=== PATIENT | female | born 1970 ===

== ENCOUNTER 2017-01-25 20:50 | Inpatient (IN) ==
[2017-01-25] MEDS ORDERED: KETOROLAC 30 MG/1 ML VIAL IV STA (21:57)
[2017-01-25] MEDS ORDERED: KETOROLAC 30 MG/1 ML VIAL ONE (22:09)
[2017-01-25 22:32] LABS: Basophils % 0.2 % (0.0-0.8); Eosinophils # 0.2 10*3/uL (0.0-0.87); Eosinophils % 0.8 % (0.00-10.9); Hematocrit 27.5 VOL% (35.7-47.0); Hemoglobin 9.3 GM/DL (12.0-16.0); Immature Granulocytes % 0.8 %; Immature Granulocytes Absolute 0.17 #; Lymphocytes # 2.3 10*3/uL (1.4-4.0); Lymphocytes % 10.8 % (21.3-54.2); Mean Corpuscular HGB Conc 33.8 GM/DL (32-36); Mean Corpuscular Hemoglobin 28 PG (27-34); Mean Corpuscular Volume 84.1 FL (87-102); Mean Platelet Volume 9.1 FL (9.6-12.0); Monocytes # 1.1 10*3/uL (0.11-0.8); Neutrophils # 17.5 10*3/uL (1.4-7.4); Neutrophils % 82.4 % (38.7-73.9); Platelet Count 408 T/CUMM (130-400); Red Blood Count 3.27 MC/CUMM (3.8-5.5); Red Cell Distribution Width 13.2 % (9.3-17.3); White Blood Count 21.2 T/CUMM (4-12)
[2017-01-25] MEDS ORDERED: VANCOMYCIN INJ 1,000 MG in SODIUM CHLORIDE 0.9% 250 ML IV STA (22:47)
[2017-01-25] MEDS ORDERED: CEFEPIME 2,000 MG in SODIUM CHLORIDE 0.9% 100 ML IV STA (22:47)
[2017-01-25] MEDS ORDERED: SODIUM CHLORIDE 0.9% 2,000 ML IV STA (22:48)
[2017-01-25 22:49] LABS: Albumin 1.9 G/DL (3.4-5.0); Bilirubin,Total 0.4 MG/DL (0.2-1.0); Potassium 2.8 MMOL/L (3.5-5.1); Total Protein 7.2 G/DL (6.4-8.3)
--- NOTE | 2017-01-25 23:04 | Emergency Department Note ---
Arrival - Arrival Chief Complaint: Abscess Stated Complaint: pain on left cheek ED Nursing Triage Note: Patient to triage coming from [facility] ED for further evaluation and treatment of facial abscess and cellulitis to left cheek. Patient states she picked at the area a couple of days ago and then today, she noticed fever, swelling, and pain to left cheek. Patient had 103 temp prior to leaving [facility] ED and was given tylenol. Patient had elevated WBC at [facility] ED. Mode of Arrival: Wheelchair Time Seen by Provider: 01/25/17 21:53 - History of Present Illness HPI Narrative: This is a 46-year-old female of [facility] descent who presents with 2-3 days of pain and worsening swelling of the left facial cheek. Recent says that she had a similar staph abscess involving her back some years ago for which she had to be admitted to the hospital for intravenous antibiotics and surgery. Patient is complaining of fever and chills as well as severe pain involving the left facial cheek. Laboratory tests taken at the [facility] showed acute renal failure. Date of Last Menstrual Period: "last month" Allergies/Adverse Reactions: Allergies Allergy/AdvReac Type Severity Reaction Status Date / Time No Known Allergies Allergy Verified 01/25/17 21:31 Home Medications: Home Medications Medication Instructions Recorded Confirmed Type Aspirin [Ecotrin] 81 mg PO QOTHER DAY 09/09/15 12/17/15 History Fluticasone 50 Mcg Nasal [place] 2 spray BOTH NARES DAILY 09/09/15 12/17/15 History [Flonase Nasal [place]] Ibuprofen 400 mg PO Q6H PRN 09/09/15 12/17/15 History Insulin Aspart [NovoLOG FlexPen] 15 unit SUBCUT AC BREAKFAST 09/09/15 12/17/15 History Insulin Detemir [Levemir FlexPen] 45 unit SUBCUT BEDTIME 09/09/15 12/17/15 History Loratadine 10 mg PO DAILY 09/09/15 12/17/15 History Simvastatin 10 mg PO BEDTIME 09/09/15 12/17/15 History Acetaminophen Tab [Tylenol Tab] 650 mg PO Q6H PRN #0 tablet 09/16/15 12/17/15 Rx HYDROcodone/ACETAMIN 7.5-325 1 tablet PO Q6H PRN #30 tablet 11/26/15 12/17/15 Rx [[place] 7.5-325] Collagenase Oint [Santyl Oint] 1 applic TOP DAILY ointment 12/22/15 Rx Dextrose 50% [D50] 25 gm IV PRN PRN #0 vial 12/22/15 Rx Enoxaparin [Lovenox] 40 mg SUBCUT Q24H syringe 12/22/15 Rx Glucagon 1 mg IM PRN PRN #0 vial 12/22/15 Rx HYDROcodone/ACETAMIN 7.5-325 1 tablet PO Q4H PRN #0 tablet 12/22/15 Rx [[place] 7.5-325] HYDROmorphone INJ [Dilaudid Inj] 1 mg IV Q2H PRN #0 vial 12/22/15 Rx Insulin Lispro [HumaLOG] 15 unit SUBCUT TID W/MEALS ml 12/22/15 Rx Insulin Regular [HumuLIN R] See Protocol SUBCUT ACHS injection 12/22/15 Rx NIFEdipine XL TAB [Procardia Xl] 60 mg PO DAILY tablet 12/22/15 Rx Pantoprazole Tab [Protonix Tab] 40 mg PO DAILY tablet 12/22/15 Rx Sodium Hypochlorite 0.25% Irr 1 applic TOP DAILY irrigation 12/22/15 Rx [Dakins 1/2 Strength 0.25% Soln] Vancomycin Inj 1,500 mg IV Q12H vial 12/22/15 Rx metroNIDAZOLE INJ [Flagyl Inj] 500 mg IV Q8H premix 12/22/15 Rx Review of System - Review of System Constitutional: Present: chills, fever Eyes: Absent: redness, vision change, other Head/Ears/Nose/Throat: Present: other (Left facial swelling and redness). Absent: epistaxis, nasal drainage Respiratory: Absent: respiratory distress, wheezing Cardiovascular: Absent: dyspnea on exertion, orthopnea, edema Gastrointestinal: Absent: constipation, melena Genitourinary female: Absent: dysuria, discharge, dyspareunia Musculoskeletal: Absent: joint swelling, lower back pain, leg pain, neck pain Skin: Absent: change in color, change in hair/nails Neurological: Absent: numbness, paresthesias, confusion Psychiatric: Absent: anxiety, depression Endocrine: Absent: heat intolerance, polydipsia, polyuria Hematological/Lymphatic: Absent: easy bruising, lymphadenopathy Allergic/Immunologic: Absent: urticaria, itchy eyes Medical,Surgical,& Family Hx - Medical History Cardio: History of: Hypertension HEENT: History of: Eye Problem (wears glasses) Endocrine: History of: Diabetes Mellitus (IDDM), Dyslipidemia Respiratory: History of: Respiratory Problems (ALLERGIES) Musculoskeletal: History of: Musculoskeletal Problems (ARTHRITIS) - Surgical History Reproductive Surgeries: Patient denies;: Genitourinary Surgery Orthopedic Surgeries: Surgical HX of;: Orthopedic Surgery (toe and back) - Family History Family History: Reports;: Family Diabetes - Social History Smoking Status: Never smoker Frequency of Alcohol Use: None Type of Drug Use: None Exam Vital Signs: Vital Signs Temperature 99.6 F 01/25/17 21:21 Pulse Rate 82 01/25/17 21:21 Respiratory Rate 20 01/25/17 21:21 Blood Pressure 166/78 01/25/17 21:21 O2 Sat by Pulse Oximetry 99 01/25/17 21:21 - Head Head exam: Present: atraumatic, normocephalic - Eye Eye exam: Present: PERRL, EOMI - ENT ENT exam: Present: other (Redness warmth and swelling involving the left facial cheek) - Neck Neck exam: Present: normal inspection, full ROM - Chest Chest inspection: Present: normal inspection, symmetric chest wall rise - Respiratory Respiratory exam: Present: normal lung sounds bilaterally - Abdominal Exam Abdominal exam: Present: soft, normal bowel sounds - Extremities Exam Extremities exam: Present: normal inspection, full ROM - Back Exam Back exam: Present: normal inspection, full ROM - Neurological Exam Neurological exam: Present: alert, oriented X3, CN II-XII intact, normal gait - Psychiatric Psychiatric exam: Present: normal affect, normal mood - Skin Skin exam: Present: warm, dry Course Course Narrative: The patient's creatinine was found to be above 4.5. This is a change from her laboratory tests from 1 year ago. In addition she has a history of fever and chills as well as a 21,000 white count so it appears that the patient has a septic picture possibly related to the cellulitis or abscess involving the left facial cheek. The patient therefore will be admitted to the hospital for intravenous antibiotics and surgical consultation and evaluation by nephrology. The case was discussed with the hospitalist who agreed to admit the patient. Results - Labs CBC & BMP: 01/25/17 22:16 01/25/17 22:16 Disposition Clinical Impression: Acute renal failure, Sepsis affecting skin
[2017-01-25 23:11] LABS: Band Neutrophils 3 % (0-10); Lymphocytes 11 % (20-55); Segmented Neutrophils 82 % (50-85)
[2017-01-25 23:12] LABS: Platelet Estimate Normal; Total Cells Counted 100
[2017-01-25] MEDS ORDERED: VANCOMYCIN 1,000 MG VIAL ONE (23:12)
--- NOTE | 2017-01-26 01:08 | Hospitalist History & Physical ---
Assessment and Plan - Time spent with patient Time spent with patient: Less than 30 minutes (1) Facial abscess Status: Acute Assessment and plan: Blood cultures pending Zosyn and Vancomycin for IV coverage Temp 99.6. WBC 22 CT maxiofacial showed left cheek soft tissue swelling with subq edema Will consult ENT Pain meds PRN Continue hydration Current Visit: Yes (2) Hypertension Status: Acute Current Visit: Yes (3) Hypokalemia Status: Acute Assessment and plan: will replace orally and then recheck Current Visit: Yes (4) CKD (chronic kidney disease) Status: Chronic Assessment and plan: Awaiting appointment with Dr. Knott in 2 weeks Current Visit: No (5) Diabetes Status: Acute Assessment and plan: Will place on SSI with accuchecks until home medications can be confirmed Current Visit: No (6) Diabetic foot ulcers Status: Chronic Assessment and plan: Will consult wound for recommendations Current Visit: Yes Qualifiers: Diabetes mellitus type: due to underlying condition Laterality: bilateral Qualified Code(s): E08.621 - Diabetes mellitus due to underlying condition with foot ulcer History of Present Illness Chief complaint: boil on face History of present illness: Called to the ER for Ms. Guerra who is a 46 year old female that was a transfer from [facility] for a facial abscess. Patient stated that she saw the abscess began to form a couple days ago and then began to ran fever of 100.3 yesterday and today. Patient went to clinic [facility] where she received Rocephin 1 g IM. They transferred her to [facility] ER and then was transferred here. CT maxillofacial showed left cheek soft tissue swelling and subcutaneous edema. Patient has a history of an abscess being surgically I&D to her back as well as a non-healing diabetic foot ulcer that has been followed by Dr. Hinson and Dr. Garcia. Today she has received Maxipime and vancomycin for antibiotics. Blood cultures were obtained. Her temperature was 99.6 and her WBC count was 19.8. Past blood cultures are greater than a year old but grew out MRSA. Her additional history includes diabetes, dyslipidemia, hypertension, any new diagnosis of chronic kidney disease for which she has an appointment with Dr. Knott 2 weeks from today. She will be admitted under inpatient, vancomycin IV for antibiotics, as needed pain meds, ENT consult, and management of her blood glucose. Home medications will be reviewed and reconciled once confirmed. Patient is a full code. Home Medications Medication Instructions Recorded Confirmed Type Aspirin [Ecotrin] 81 mg PO QOTHER DAY 09/09/15 12/17/15 History Fluticasone 50 Mcg Nasal [place] 2 spray BOTH NARES DAILY 09/09/15 12/17/15 History [Flonase Nasal [place]] Ibuprofen 400 mg PO Q6H PRN 09/09/15 12/17/15 History Insulin Aspart [NovoLOG FlexPen] 15 unit SUBCUT AC BREAKFAST 09/09/15 12/17/15 History Insulin Detemir [Levemir FlexPen] 45 unit SUBCUT BEDTIME 09/09/15 12/17/15 History Loratadine 10 mg PO DAILY 09/09/15 12/17/15 History Simvastatin 10 mg PO BEDTIME 09/09/15 12/17/15 History Acetaminophen Tab [Tylenol Tab] 650 mg PO Q6H PRN #0 tablet 09/16/15 12/17/15 Rx HYDROcodone/ACETAMIN 7.5-325 1 tablet PO Q6H PRN #30 tablet 11/26/15 12/17/15 Rx [[place] 7.5-325] Collagenase Oint [Santyl Oint] 1 applic TOP DAILY ointment 12/22/15 Rx Dextrose 50% [D50] 25 gm IV PRN PRN #0 vial 12/22/15 Rx Enoxaparin [Lovenox] 40 mg SUBCUT Q24H syringe 12/22/15 Rx Glucagon 1 mg IM PRN PRN #0 vial 12/22/15 Rx HYDROcodone/ACETAMIN 7.5-325 1 tablet PO Q4H PRN #0 tablet 12/22/15 Rx [[place] 7.5-325] HYDROmorphone INJ [Dilaudid Inj] 1 mg IV Q2H PRN #0 vial 12/22/15 Rx Insulin Lispro [HumaLOG] 15 unit SUBCUT TID W/MEALS ml 12/22/15 Rx Insulin Regular [HumuLIN R] See Protocol SUBCUT ACHS injection 12/22/15 Rx NIFEdipine XL TAB [Procardia Xl] 60 mg PO DAILY tablet 12/22/15 Rx Pantoprazole Tab [Protonix Tab] 40 mg PO DAILY tablet 12/22/15 Rx Sodium Hypochlorite 0.25% Irr 1 applic TOP DAILY irrigation 12/22/15 Rx [[place]ak[place] 1/2 Strength 0.25% Soln] Vancomycin Inj 1,500 mg IV Q12H vial 12/22/15 Rx metroNIDAZOLE INJ [Flagyl Inj] 500 mg IV Q8H premix 12/22/15 Rx Allergies Allergy/AdvReac Type Severity Reaction Status Date / Time No Known Allergies Allergy Verified 01/25/17 21:31 Medical,Surgical,& Family Hx - Medical History Cardio: History of: Hypertension No history of: CHF, CAD, [place] Psychological: No history of: Anxiety Disorders Neurology: No history of: Cerebrovascular Accident, Migraine, TIA HEENT: History of: Eye Problem (wears glasses) Endocrine: History of: Diabetes Mellitus (IDDM), Dyslipidemia No history of: Thyroid Disorder Rheumatology: No history of;: Rheumatological Problems Respiratory: History of: Respiratory Problems (ALLERGIES) No history of: Asthma, COPD, Obstructive Sleep Apnea Renal: History of: Renal Failure Genitourinary: No history of: Problems Gastrointestinal: No history of: Liver Problems, GI Problems Musculoskeletal: History of: Musculoskeletal Problems (ARTHRITIS) Hematology: No history of: Blood Disorders Other: History of: MRSA - Surgical History Reproductive Surgeries: Patient denies;: Genitourinary Surgery Orthopedic Surgeries: Surgical HX of;: Orthopedic Surgery (toe and back) - Family History Family History: Reports;: Family Cancer (Motherbreast cancer; dadprostate cancer), Family Heart Disease (BrotherMI), Family Hematology (Sisteranemia\) - Social History Smoking Status: Never smoker Frequency of Alcohol Use: None Type of Drug Use: None Marital Status: Single Lives With:: Children Functional capacity: independent ambulation - Constitutional Constitutional: Present: chills, fever(s). Absent: fatigue, headache(s), increased appetite, weakness - EENT Eyes: Absent: blurry vision, loss of vision Ears: Absent: ear discharge, ear pain, tinnitus Nose, mouth and throat: Absent: nasal congestion, neck pain, sore throat, throat swelling, tongue swelling - Cardiovascular Cardiovascular: Absent: chest pain at rest, chest pain with activity, dyspnea, edema, orthopnea - Respiratory Respiratory: Absent: cough, dyspnea, hemoptysis - Gastrointestinal Gastrointestinal: Absent: abdominal pain, diarrhea, dyspepsia, nausea, vomiting - Genitourinary Genitourinary: Absent: abnormal vaginal bleeding - Musculoskeletal Musculoskeletal: Absent: arthralgias - Neurological Neurological: Absent: abnormal gait, disequilibrium, frequent falls - Psychiatric Psychiatric: Absent: anxiety - Endocrine Endocrine: Absent: cold intolerance, heat intolerance - Hematologic/Lymphatic Hematologic/Lymphatic: Absent: easy bleeding Exam - Constitutional Vitals: Period Temp Pulse Resp BP Sys/Jarrell Pulse Ox Last 24 Hr 99.6 F-99.6 F 82-82 20-20 166-166/78-78 99 General appearance: no acute distress, morbidly obese - Head Head exam: Present: normocephalic, other (Abscess to left cheek with erythema and edema throughout left cheek and periorbital) - Eye Eye exam: Present: EOMI, periorbital swelling. Absent: nystagmus Pupils: Present: LUIS MANUEL, normal accommodation - ENT ENT exam: Present: normal exam - Neck Neck exam: Present: normal inspection - Respiratory Respiratory exam: Present: clear to auscultation bilaterally. Absent: accessory muscle use (Respirations even and unlabored. Symmetrical rise and fall of chest.) - Cardiovascular Cardiovascular exam: Present: regular rate and rhythm. Absent: diastolic murmur , systolic murmur - GI/Abdominal GI/Abdominal exam: Present: normal bowel sounds, soft. Absent: firm, tenderness - Extremities Exam Extremities exam: Present: normal inspection, normal capillary refill, full ROM - Back Exam Back exam: Present: normal inspection - Neurological Exam Neurological exam: Present: alert, oriented X3 (Able to answer questions appropriately. Makes good eye contact.) - Psychiatric Psychiatric exam: Present: normal affect, normal mood - Skin Skin exam: Present: normal color, warm, dry, intact Results - Labs CBC & BMP: 01/25/17 22:16 01/25/17 22:16 Lab Results: I have reviewed the past 24 hour labs
[2017-01-26] MEDS ORDERED: PIPERACILLIN/TAZOBACTAM 3,375 MG in SODIUM CHLORIDE 0.9% 100 ML IV SCH (01:30)
[2017-01-26] MEDS ORDERED: GLUCAGON 1 MG VIAL IM PRN (01:53)
[2017-01-26] MEDS ORDERED: POTASSIUM CHLORIDE 20 MEQ TABLET PO ONE ×2 (01:53→09:00)
[2017-01-26] MEDS ORDERED: DEXTROSE 50% 25 GM/50 ML SYRINGE IV PRN (01:53)
[2017-01-26] MEDS ORDERED: ACETAMINOPHEN 325 MG TABLET PO PRN (01:53)
[2017-01-26] MEDS ORDERED: ONDANSETRON 4 MG/2 ML VIAL IV PRN (01:53)
[2017-01-26] MEDS ORDERED: DOCUSATE SODIUM 100 MG CAPSULE PO PRN (01:53)
[2017-01-26] MEDS: SODIUM CHLORIDE 0.9% 1,000 ML IV SCH ×2 (03:05→12:52)
[2017-01-26] MEDS: PIPERACILLIN/TAZOBACTAM 3,375 MG in SODIUM CHLORIDE 0.9% 100 ML IV SCH ×2 (04:53→14:55)
--- NOTE | 2017-01-26 07:03 | CT Report ---
Exam: CT facial bones wo con Date: 01/25/2017 Reason: Left cheek pain Comparison: None Technique: Axial images of the facial bones were obtained without the use of contrast. Sagittal and coronal reformatted images were also acquired. Total DLP was 647.40 mGy*cm. [facility]. Findings: Soft tissue swelling in the left cheek location. No significant fluid collection is identified. Adjacent small calcifications. 17 mm retention cyst/polyp in the floor of the left maxillary sinus. The globes are intact and the visualized temporal bones have an unremarkable appearance. No fracture is identified. Impression: Left cheek soft tissue swelling with no significant drainable fluid collection. . Small superficial calcifications are noted in this area. These findings can be seen with cellulitis, etc. 17 mm retention cyst/polyp in the left maxillary sinus. This CT exam was performed using one or more of the following dose reduction techniques: Automatic exposure control, adjustment of the MA and/or KV according to patient size, or use of iterative reconstruction technique. PROCEDURE INTERPRETED AT [facility] DEPARTMENT OF RADIOLOGY Final Report Signed by: Dr. Christine Mittal
[2017-01-26] MEDS: INSULIN LISPRO 100 UNIT/ML SUBCUT SCH ×4 (07:23→17:55)
[2017-01-26] MEDS: PANTOPRAZOLE 40 MG TABLET PO SCH (09:11)
[2017-01-26] MEDS: ENOXAPARIN 30 MG/0.3 ML SYRINGE SUBCUT SCH (09:11)
[2017-01-26 09:24] LABS: Basophils % 0.1 % (0.0-0.8); Eosinophils # 0.4 10*3/uL (0.0-0.87); Eosinophils % 2.2 % (0.00-10.9); Hematocrit 23.7 VOL% (35.7-47.0); Immature Granulocytes % 0.6 %; Immature Granulocytes Absolute 0.11 #; Lymphocytes # 1.6 10*3/uL (1.4-4.0); Lymphocytes % 9.2 % (21.3-54.2); Mean Corpuscular HGB Conc 33.8 GM/DL (32-36); Mean Corpuscular Hemoglobin 29 PG (27-34); Mean Corpuscular Volume 85.9 FL (87-102); Mean Platelet Volume 8.9 FL (9.6-12.0); Monocytes # 0.9 10*3/uL (0.11-0.8); Monocytes % 5.1 % (1.7-12.7); Neutrophils # 14.1 10*3/uL (1.4-7.4); Neutrophils % 82.8 % (38.7-73.9); Platelet Count 338 T/CUMM (130-400); Red Blood Count 2.76 MC/CUMM (3.8-5.5); Red Cell Distribution Width 13.3 % (9.3-17.3)
--- NOTE | 2017-01-26 09:32 | Consultation ---
Assessment and Plan - Time spent with patient Time spent with patient: Less than 30 minutes (1) Facial abscess Status: Acute Assessment and plan: Her CT scan of the face did not show abscess formation. We will continue her current antibiotic therapy Current Visit: Yes (2) Facial cellulitis Status: Acute Assessment and plan: She did not have evidence of abscess on CT scan of the face or exam. It does not seem that she needs an I&D at this time. She is currently on Zosyn. Her white cell count trended down slightly. We will continue her current antibiotic therapy and follow-up closely. Current Visit: Yes (3) Diabetes Status: Acute Assessment and plan: Good diabetic control. Current Visit: No History of Present Illness - Data of Consult Patient: new to practice Consult date: 01/26/17 - Consult Narrative Reason for consult: Facial abscess History of present illness: Ms. Guerra is a 46 year old female Who was transferred from [facility] due to a possible facial abscess. She had a CT scan of the face that showed some edema, but no abscess formation. She is currently on Zosyn. She does admit to tenderness and pain with movement of her mouth. She is diabetic and has chronic diabetic with ulcers. CC: Laura Michelle MD - Home Medications and Allergies Home Medications: Home Medications Medication Instructions Recorded Confirmed Type Aspirin [Ecotrin] 81 mg PO QOTHER DAY 09/09/15 01/26/17 History Fluticasone 50 Mcg Nasal [place] 2 spray BOTH NARES DAILY 09/09/15 01/26/17 History [Flonase Nasal [place]] Ibuprofen 400 mg PO Q6H PRN 09/09/15 01/26/17 History Insulin Aspart [NovoLOG FlexPen] 10 unit SUBCUT AC BREAKFAST 09/09/15 01/26/17 History Insulin Detemir [Levemir FlexPen] 45 unit SUBCUT BEDTIME 09/09/15 01/26/17 History Loratadine 10 mg PO DAILY 09/09/15 01/26/17 History Simvastatin 10 mg PO BEDTIME 09/09/15 01/26/17 History Acetaminophen Tab [Tylenol Tab] 650 mg PO Q6H PRN #0 tablet 09/16/15 01/26/17 Rx HYDROcodone/ACETAMIN 7.5-325 1 tablet PO Q6H PRN #30 tablet 11/26/15 01/26/17 Rx [[place] 7.5-325] Collagenase Oint [Santyl Oint] 1 applic TOP DAILY ointment 12/22/15 01/26/17 Rx Dextrose 50% [D50] 25 gm IV PRN PRN #0 vial 12/22/15 01/26/17 Rx Enoxaparin [Lovenox] 40 mg SUBCUT Q24H syringe 12/22/15 01/26/17 Rx Glucagon 1 mg IM PRN PRN #0 vial 12/22/15 01/26/17 Rx HYDROcodone/ACETAMIN 7.5-325 1 tablet PO Q4H PRN #0 tablet 12/22/15 01/26/17 Rx [[place] 7.5-325] HYDROmorphone INJ [Dilaudid Inj] 1 mg IV Q2H PRN #0 vial 12/22/15 01/26/17 Rx Insulin Lispro [HumaLOG] 15 unit SUBCUT TID W/MEALS ml 12/22/15 01/26/17 Rx Insulin Regular [HumuLIN R] See Protocol SUBCUT ACHS injection 12/22/15 Rx NIFEdipine XL TAB [Procardia Xl] 60 mg PO DAILY tablet 12/22/15 01/26/17 Rx Pantoprazole Tab [Protonix Tab] 40 mg PO DAILY tablet 12/22/15 01/26/17 Rx Sodium Hypochlorite 0.25% Irr 1 applic TOP DAILY irrigation 12/22/15 01/26/17 Rx [[place] 1/2 Strength 0.25% Soln] Vancomycin Inj 1,500 mg IV Q12H vial 12/22/15 01/26/17 Rx metroNIDAZOLE INJ [Flagyl Inj] 500 mg IV Q8H premix 12/22/15 01/26/17 Rx Allergies/Adverse Reactions: Allergies Allergy/AdvReac Type Severity Reaction Status Date / Time No Known Allergies Allergy Verified 01/25/17 21:31 Medical,Surgical,& Family Hx - Medical History Cardio: History of: Hypertension No history of: CHF, CAD, [place] Psychological: No history of: Anxiety Disorders Neurology: No history of: Cerebrovascular Accident, Migraine, TIA HEENT: History of: Eye Problem (wears glasses) Endocrine: History of: Diabetes Mellitus (IDDM), Dyslipidemia No history of: Thyroid Disorder Rheumatology: No history of;: Rheumatological Problems Respiratory: History of: Respiratory Problems (ALLERGIES) No history of: Asthma, COPD, Obstructive Sleep Apnea Renal: History of: Renal Failure Genitourinary: No history of: Problems Gastrointestinal: No history of: Liver Problems, GI Problems Musculoskeletal: History of: Musculoskeletal Problems (ARTHRITIS) Hematology: No history of: Blood Disorders Other: History of: MRSA - Surgical History Reproductive Surgeries: Patient denies;: Genitourinary Surgery Orthopedic Surgeries: Surgical HX of;: Orthopedic Surgery (zaida ankle, back, left great toe) - Family History Family History: Reports;: Family Cancer (Motherbreast cancer; dadprostate cancer), Family Diabetes, Family Heart Disease (BrotherMI), Family Hematology ( Sisteranemia\) - Social History Smoking Status: Never smoker Frequency of Alcohol Use: None Type of Drug Use: None Exam - Constitutional Vitals: Period Temp Pulse Resp BP Sys/Jarrell Pulse Ox Last 24 Hr 97.8 F-100.0 F 74-82 18-20 129-166/55-78 95-99 General appearance: normal weight, no acute distress - Eye Eye exam: Present: EOMI - ENT ENT exam: Present: normal external ear exam - Neck Neck exam: Present: other (About 5cm induration on left maxillary area with no signs of fluctuance or purulent drainage.) - Respiratory Respiratory exam: Present: other (Normal effort and movement bilaterally) - GI/Abdominal GI/Abdominal exam: Present: soft - Neurological Exam Neurological exam: Present: alert, oriented X3 - Psychiatric Psychiatric exam: Present: normal affect, normal mood - Skin Skin exam: Present: normal color, warm Results - Labs CBC & BMP: 01/26/17 09:04 01/25/17 22:16 Lab Results: I have reviewed the past 24 hour labs
[2017-01-26 09:46] LABS: Albumin 1.5 G/DL (3.4-5.0); Bilirubin,Total 0.4 MG/DL (0.2-1.0); Calcium 7.2 MG/DL (8.5-10.1); Osmolality,Calculated 285.7 MOS/KG (273-304); Potassium 3.4 MMOL/L (3.5-5.1)
[2017-01-26] MEDS ORDERED: VANCOMYCIN INJ 1,500 MG in SODIUM CHLORIDE 0.9% 500 ML IV PRN (12:04)
--- NOTE | 2017-01-26 15:50 | Hospitalist Progress Note ---
Assessment and Plan (1) Facial cellulitis Status: Acute Assessment and plan: stop zosyn and vanco, clindamycin IV, blood cx pending Current Visit: Yes (2) Acute renal failure Status: Acute Assessment and plan: renal us, long history of diabetes and htn, will consult renal, change IVF to 1/ 2 NS Current Visit: Yes (3) Hypertension Status: Acute Assessment and plan: Restarted nifedipine XL 60 mg daily Current Visit: Yes (4) Hypokalemia Status: Acute Assessment and plan: Replaced and recheck in a.m. Current Visit: Yes Hospitalist: Subjective Interval history: Patient admitted for left-sided facial cellulitis. Looks like patient had a spider bite. Dr. Villavicencio and I have discussed the case and he wanted to do warm compresses for now. I am still concerned about possible pus developing underneath as her face is quite swollen. Home meds reviewed and reconciled. Exam - Constitutional Vitals: Period Temp Pulse Resp BP Sys/Jarrell Pulse Ox Last 24 Hr 97.8 F-100.0 F 74-96 18-20 129-166/55-78 95-99 Exam: Heart Rate-[RRR] Lungs-[CTAB] GI-[+bs soft, NT] Ext-[no edema] Skin enlarged tender fluctuant mass on leg left face with central ulceration Neuro [Motor 5/5], [alert and oriented times 3] psych [normal mood and affect] General [no acute distress] Results - Labs CBC & BMP: 01/26/17 09:04 01/26/17 09:04 Lab Results: I have reviewed the past 24 hour labs Labs: Blood cultures 2 pending - Diagnostic Findings Procedure: CT: report reviewed by me (left cheek swelling no abscess)
[2017-01-26] MEDS: CLINDAMYCIN INJ 600 MG in PREMIX 1 EACH IV SCH (17:40)
[2017-01-26] MEDS: SODIUM CHLORIDE 0.45% 1,000 ML IV SCH (17:40)
[2017-01-26] MEDS: FLUTICASONE 50 MCG NASAL SPRAY 16 GM BOTTLE BOTH NARES SCH (17:41)
--- NOTE | 2017-01-26 17:56 | Ultrasound Report ---
Renal ultrasound Indication: Renal failure Comparison: None available Findings: Kidneys are normal in size and echogenicity. No hydronephrosis or nephrolithiasis is seen. The right renal length is 12.9 cm. The left renal length is 13.3 cm. No free fluid or other abnormality is seen. Impression: No evidence of abnormality demonstrated. Ultrasound images stored and captured. PROCEDURE INTERPRETED AT [facility] DEPARTMENT OF RADIOLOGY Final Report Signed by: Dr. Rock Oreilly
--- NOTE | 2017-01-26 18:35 | Nephrology Consult Note ---
History of Present Illness Chief complaint: Chronic kidney disease History of present illness: Ms. Guerra is a 46 year old female history of chronic kidney disease due to hypertension diabetes presented from [facility] with a facial abscess associated with fevers and chills. She mentions that she noticed the area on her face a few days ago and subsequently the area on her cheeks became more swollen. The patient has serum creatinine noted to be 5.0. There is no history of NSAID use. She denies shortness of breath or chest pain. She is scheduled to follow with [facility] and chronic kidney disease clinic in the next 2 weeks. Nephrology has been consulted for renal issues. Home Medications Medication Instructions Recorded Confirmed Type Aspirin [Ecotrin] 81 mg PO QOTHER DAY 09/09/15 01/26/17 History Fluticasone 50 Mcg Nasal [place] 2 spray BOTH NARES DAILY 09/09/15 01/26/17 History [Flonase Nasal [place]] Ibuprofen 400 mg PO Q6H PRN 09/09/15 01/26/17 History Insulin Aspart [NovoLOG FlexPen] 10 unit SUBCUT AC BREAKFAST 09/09/15 01/26/17 History Insulin Detemir [Levemir FlexPen] 45 unit SUBCUT BEDTIME 09/09/15 01/26/17 History Loratadine 10 mg PO DAILY 09/09/15 01/26/17 History Simvastatin 10 mg PO BEDTIME 09/09/15 01/26/17 History Acetaminophen Tab [Tylenol Tab] 650 mg PO Q6H PRN #0 tablet 09/16/15 01/26/17 Rx HYDROcodone/ACETAMIN 7.5-325 1 tablet PO Q6H PRN #30 tablet 11/26/15 01/26/17 Rx [Kinmundy 7.5-325] Collagenase Oint [Santyl Oint] 1 applic TOP DAILY ointment 12/22/15 01/26/17 Rx Dextrose 50% [D50] 25 gm IV PRN PRN #0 vial 12/22/15 01/26/17 Rx Enoxaparin [Lovenox] 40 mg SUBCUT Q24H syringe 12/22/15 01/26/17 Rx Glucagon 1 mg IM PRN PRN #0 vial 12/22/15 01/26/17 Rx HYDROcodone/ACETAMIN 7.5-325 1 tablet PO Q4H PRN #0 tablet 12/22/15 01/26/17 Rx [Kinmundy 7.5-325] HYDROmorphone INJ [Dilaudid Inj] 1 mg IV Q2H PRN #0 vial 12/22/15 01/26/17 Rx Insulin Lispro [HumaLOG] 15 unit SUBCUT TID W/MEALS ml 12/22/15 01/26/17 Rx Insulin Regular [HumuLIN R] See Protocol SUBCUT ACHS injection 12/22/15 Rx NIFEdipine XL TAB [Procardia Xl] 60 mg PO DAILY tablet 12/22/15 01/26/17 Rx Pantoprazole Tab [Protonix Tab] 40 mg PO DAILY tablet 12/22/15 01/26/17 Rx Sodium Hypochlorite 0.25% Irr 1 applic TOP DAILY irrigation 12/22/15 01/26/17 Rx [Dakins 1/2 Strength 0.25% Soln] Vancomycin Inj 1,500 mg IV Q12H vial 12/22/15 01/26/17 Rx metroNIDAZOLE INJ [Flagyl Inj] 500 mg IV Q8H premix 12/22/15 01/26/17 Rx Allergies Allergy/AdvReac Type Severity Reaction Status Date / Time No Known Allergies Allergy Verified 01/25/17 21:31 Medical,Surgical,& Family Hx - Medical History Cardio: History of: Hypertension No history of: CHF, CAD, PA Psychological: No history of: Anxiety Disorders Neurology: No history of: Cerebrovascular Accident, Migraine, TIA HEENT: History of: Eye Problem (wears glasses) Endocrine: History of: Diabetes Mellitus (IDDM), Dyslipidemia No history of: Thyroid Disorder Rheumatology: No history of;: Rheumatological Problems Respiratory: History of: Respiratory Problems (ALLERGIES) No history of: Asthma, COPD, Obstructive Sleep Apnea Renal: History of: Renal Failure Genitourinary: No history of: Problems Gastrointestinal: No history of: Liver Problems, GI Problems Musculoskeletal: History of: Musculoskeletal Problems (ARTHRITIS) Hematology: No history of: Blood Disorders Other: History of: MRSA - Surgical History Reproductive Surgeries: Patient denies;: Genitourinary Surgery Orthopedic Surgeries: Surgical HX of;: Orthopedic Surgery (zaida ankle, back, left great toe) - Family History Family History: Reports;: Family Cancer (Motherbreast cancer; dadprostate cancer), Family Diabetes, Family Heart Disease (BrotherMI), Family Hematology ( Sisteranemia\) - Social History Smoking Status: Never smoker Frequency of Alcohol Use: None Type of Drug Use: None Review of Systems Constitutional: chills, fever(s), no anorexia Exam - Vital Signs Vital signs: Period Temp Pulse Resp BP Sys/Jarrell Pulse Ox Last 24 Hr 97.8 F-100.1 F 74-96 18-20 129-166/55-78 95-99 - General Appearance General appearance: well-developed, obese EENT: mucous membranes moist Neck: supple Respiratory: clear Cardiology: no edema, regular rate, regular rhythm Gastrointestinal: normoactive bowel sounds, no tenderness, no guarding Integumentary: hyperpigmentation (Noted on the left cheek associated with an abscess no drainage) Neurologic: alert and oriented x3, CN 3-12 intact Musculoskeletal: no clubbing Psychiatric: mood/affect appropriate, cooperative Results - Labs CBC & BMP: 01/26/17 09:04 01/26/17 09:04 Assessment and Plan (1) Diabetes Status: Chronic Current Visit: No Qualifiers: Diabetes mellitus type: type 2 Chronic kidney disease stage: stage 5, not on chronic dialysis (2) CKD (chronic kidney disease) Status: Chronic Assessment and plan: Avoid nephrotoxic agents. Daily BMP. Urinalysis. Will follow with you thank you. Current Visit: No Qualifiers: Chronic kidney disease stage: stage 5, not on chronic dialysis Qualified Code(s): N18.5 - Chronic kidney disease, stage 5 (3) Hypertension Status: Chronic Current Visit: Yes Qualifiers: Hypertension type: essential hypertension Qualified Code(s): I10 - Essential (primary) hypertension (4) Facial abscess Status: Acute Assessment and plan: Multiple antibiotics. Current Visit: Yes
[2017-01-26] MEDS: INSULIN GLARGINE 100 UNIT/ML SUBCUT SCH (22:35)
[2017-01-26] MEDS: SIMVASTATIN 10 MG TABLET PO SCH (22:37)
[2017-01-27] MEDS ORDERED: VANCOMYCIN INJ 1,500 MG in SODIUM CHLORIDE 0.9% 500 ML IV SCH
[2017-01-27] MEDS: INSULIN LISPRO 100 UNIT/ML SUBCUT SCH ×7 (00:46→17:48)
[2017-01-27] MEDS: CLINDAMYCIN INJ 600 MG in PREMIX 1 EACH IV SCH ×3 (00:48→16:49)
[2017-01-27 02:14] LABS: Basophils % 0.2 % (0.0-0.8); Eosinophils # 0.3 10*3/uL (0.0-0.87); Eosinophils % 1.8 % (0.00-10.9); Hematocrit 26.2 VOL% (35.7-47.0); Hemoglobin 8.5 GM/DL (12.0-16.0); Immature Granulocytes % 0.7 %; Immature Granulocytes Absolute 0.12 #; Lymphocytes % 10.6 % (21.3-54.2); Mean Corpuscular HGB Conc 32.4 GM/DL (32-36); Mean Corpuscular Hemoglobin 28 PG (27-34); Mean Corpuscular Volume 85.9 FL (87-102); Mean Platelet Volume 9.1 FL (9.6-12.0); Monocytes # 0.9 10*3/uL (0.11-0.8); Monocytes % 4.6 % (1.7-12.7); Neutrophils # 15.2 10*3/uL (1.4-7.4); Neutrophils % 82.1 % (38.7-73.9); Platelet Count 419 T/CUMM (130-400); Red Blood Count 3.05 MC/CUMM (3.8-5.5); Red Cell Distribution Width 13.3 % (9.3-17.3); White Blood Count 18.5 T/CUMM (4-12)
[2017-01-27] MEDS: SODIUM CHLORIDE 0.45% 1,000 ML IV SCH ×3 (02:14→18:20)
[2017-01-27 02:43] LABS: Albumin 1.6 G/DL (3.4-5.0); Bilirubin,Total 0.4 MG/DL (0.2-1.0); Osmolality,Calculated 285.7 MOS/KG (273-304); Potassium 3.8 MMOL/L (3.5-5.1); Total Protein 6.7 G/DL (6.4-8.3)
[2017-01-27] MEDS: ENOXAPARIN 30 MG/0.3 ML SYRINGE SUBCUT SCH (09:48)
[2017-01-27] MEDS: PANTOPRAZOLE 40 MG TABLET PO SCH (09:48)
[2017-01-27] MEDS: FLUTICASONE 50 MCG NASAL SPRAY 16 GM BOTTLE BOTH NARES SCH (10:07)
[2017-01-27] MEDS: POLYETHYLENE GLYCOL POWDER 17 GM PACK PO SCH (10:56)
--- NOTE | 2017-01-27 12:51 | Hospitalist Progress Note ---
Assessment and Plan (1) Facial cellulitis Status: Acute Assessment and plan: cont clindamycin IV, blood cx negative Current Visit: Yes (2) Hypertension Status: Chronic Assessment and plan: controlled Current Visit: Yes Qualifiers: Hypertension type: essential hypertension Qualified Code(s): I10 - Essential (primary) hypertension (3) Hypokalemia Status: Acute Assessment and plan: Resolved Current Visit: Yes (4) CKD (chronic kidney disease) Status: Chronic Assessment and plan: chronic stage 5 renal failure, will HL IVF Current Visit: No Qualifiers: Chronic kidney disease stage: stage 5, not on chronic dialysis Qualified Code(s): N18.5 - Chronic kidney disease, stage 5 (5) Diabetes Status: Chronic Assessment and plan: cont lantus, will add bolus before each med Current Visit: No Qualifiers: Diabetes mellitus type: type 2 Chronic kidney disease stage: stage 5, not on chronic dialysis Hospitalist: Subjective Interval history: Patient still having pain in her face. Swelling has not come down. No fluctuance noted. Patient asking for MiraLAX as she is constipated. She needs to get out of bed and move more. Exam - Constitutional Vitals: Period Temp Pulse Resp BP Sys/Jarrell Pulse Ox Last 24 Hr 97.4 F-100.1 F 79-95 18-20 106-158/46-72 95-98 Exam: Heart Rate-[RRR] Lungs-[CTAB] GI-[+bs soft, NT] Ext-[no edema] Skin enlarged tender mass on left face with central ulceration Neuro [Motor 5/5], [alert and oriented times 3] psych [normal mood and affect] General [no acute distress] Results - Labs CBC & BMP: 01/27/17 01:42 01/27/17 01:42 Lab Results: I have reviewed the past 24 hour labs Labs: blood cx negative no growth
--- NOTE | 2017-01-27 14:01 | Nephrology Progress Note ---
Nephrology - PN: Subj Interval history: Patient samples out of bed resting comfortably. No shortness of breath or chest pain. Serum creatinine is noted be 4.7 which is slightly better than yesterday. No fevers or chills. Exam (PN)-Nephrology - Vital Signs Vital signs: Period Temp Pulse Resp BP Sys/Jarrell Pulse Ox Last 24 Hr 97.4 F-100.1 F 79-95 18-20 106-158/46-72 95-98 - General Appearance General appearance: well-developed, well-nourished EENT: ATNC Neck: supple Respiratory: clear Cardiology: no edema, regular rate, regular rhythm Gastrointestinal: normoactive bowel sounds, no tenderness Neurologic: alert and oriented x3 Musculoskeletal: no clubbing Psychiatric: mood/affect appropriate, cooperative - Lab 01/27/17 01:42 01/27/17 01:42 Most recent lab results Calcium 7.0 MG/DL (8.5-10.1) L 01/27/17 01:42 Magnesium 1.9 MG/DL (1.8-2.4) 01/26/17 02:30 Assessment and Plan (1) Diabetes Status: Chronic Current Visit: No Qualifiers: Diabetes mellitus type: type 2 Chronic kidney disease stage: stage 5, not on chronic dialysis (2) CKD (chronic kidney disease) Status: Chronic Assessment and plan: Avoid nephrotoxic agents. Daily BMP. Will follow with you thank you. Current Visit: No Qualifiers: Chronic kidney disease stage: stage 5, not on chronic dialysis Qualified Code(s): N18.5 - Chronic kidney disease, stage 5 (3) Hypertension Status: Chronic Current Visit: Yes Qualifiers: Hypertension type: essential hypertension Qualified Code(s): I10 - Essential (primary) hypertension (4) Facial abscess Status: Acute Assessment and plan: Multiple antibiotics. Current Visit: Yes
[2017-01-27] MEDS: SIMVASTATIN 10 MG TABLET PO SCH (20:00)
[2017-01-27] MEDS: INSULIN GLARGINE 100 UNIT/ML SUBCUT SCH (21:11)
[2017-01-28] MEDS: INSULIN LISPRO 100 UNIT/ML SUBCUT SCH ×8 (00:48→23:44)
[2017-01-28] MEDS: CLINDAMYCIN INJ 600 MG in PREMIX 1 EACH IV SCH ×4 (00:48→23:43)
[2017-01-28 03:38] LABS: Basophils % 0.2 % (0.0-0.8); Eosinophils # 0.4 10*3/uL (0.0-0.87); Eosinophils % 3.1 % (0.00-10.9); Hematocrit 22.7 VOL% (35.7-47.0); Hemoglobin 7.4 GM/DL (12.0-16.0); Immature Granulocytes % 0.5 %; Immature Granulocytes Absolute 0.06 #; Lymphocytes # 1.9 10*3/uL (1.4-4.0); Lymphocytes % 14.9 % (21.3-54.2); Mean Corpuscular HGB Conc 32.6 GM/DL (32-36); Mean Corpuscular Hemoglobin 28 PG (27-34); Mean Corpuscular Volume 86.6 FL (87-102); Mean Platelet Volume 10.6 FL (9.6-12.0); Monocytes # 0.7 10*3/uL (0.11-0.8); Monocytes % 5.2 % (1.7-12.7); Neutrophils # 9.9 10*3/uL (1.4-7.4); Neutrophils % 76.1 % (38.7-73.9); Platelet Count 319 T/CUMM (130-400); Red Blood Count 2.62 MC/CUMM (3.8-5.5); Red Cell Distribution Width 13.2 % (9.3-17.3); White Blood Count 12.9 T/CUMM (4-12)
[2017-01-28 04:06] LABS: Alanine Aminotransferase 17 U/L (13-56); Albumin 1.5 G/DL (3.4-5.0); Alkaline Phosphatase 166 U/L (45-117); Aspartate Amino Transferase 17 U/L (0-37); Bilirubin,Total < 0.39 MG/DL (0.2-1.0); Blood Urea Nitrogen 34 MG/DL (7-18); Calcium 7.1 MG/DL (8.5-10.1); Glucose 170 MG/DL (74-106); Osmolality,Calculated 290.4 MOS/KG (273-304); Potassium 3.6 MMOL/L (3.5-5.1); Sodium 140 MMOL/L (136-145)
[2017-01-28 04:16] LABS: Eosinophils 2 % (0-10); Lymphocytes 16 % (20-55); Segmented Neutrophils 80 % (50-85)
[2017-01-28 04:17] LABS: Platelet Estimate Normal; Total Cells Counted 100
[2017-01-28] MEDS ORDERED: SODIUM CHLORIDE 0.9% 250 ML IV PRN (08:21)
[2017-01-28] MEDS: PANTOPRAZOLE 40 MG TABLET PO SCH (08:47)
[2017-01-28] MEDS: ENOXAPARIN 30 MG/0.3 ML SYRINGE SUBCUT SCH (08:48)
[2017-01-28] MEDS: POLYETHYLENE GLYCOL POWDER 17 GM PACK PO SCH (08:50)
[2017-01-28] MEDS: FLUTICASONE 50 MCG NASAL SPRAY 16 GM BOTTLE BOTH NARES SCH (08:52)
--- NOTE | 2017-01-28 10:55 | Nephrology Progress Note ---
Nephrology - PN: Subj Interval history: Patient samples out of bed resting comfortably. No shortness of breath or chest pain. Serum creatinine is noted be 4.7 which is slightly better than yesterday. No fevers or chills. 01/28/2017. The patient is resting. Serum creatinine is noted to be elevated at 5.2 today. Moreover hemoglobin is down to 7.4 today. No fevers or chills. Exam (PN)-Nephrology - Vital Signs Vital signs: Period Temp Pulse Resp BP Sys/Jarrell Pulse Ox Last 24 Hr 98.0 F-99.5 F 75-86 18-20 96-124/54-62 90-96 - General Appearance General appearance: well-developed, well-nourished EENT: ATNC Neck: supple Respiratory: clear Cardiology: no edema, regular rate, regular rhythm Gastrointestinal: normoactive bowel sounds, no tenderness Neurologic: alert and oriented x3 Musculoskeletal: no clubbing Psychiatric: mood/affect appropriate, cooperative - Lab 01/28/17 02:31 01/28/17 02:31 Most recent lab results Calcium 7.1 MG/DL (8.5-10.1) L 01/28/17 02:31 Magnesium 1.9 MG/DL (1.8-2.4) 01/26/17 02:30 Assessment and Plan (1) Diabetes Status: Chronic Current Visit: No Qualifiers: Diabetes mellitus type: type 2 Chronic kidney disease stage: stage 5, not on chronic dialysis (2) CKD (chronic kidney disease) Status: Chronic Assessment and plan: Avoid nephrotoxic agents. Daily BMP. Will follow with you thank you. Current Visit: No Qualifiers: Chronic kidney disease stage: stage 5, not on chronic dialysis Qualified Code(s): N18.5 - Chronic kidney disease, stage 5 (3) Hypertension Status: Chronic Current Visit: Yes Qualifiers: Hypertension type: essential hypertension Qualified Code(s): I10 - Essential (primary) hypertension (4) Facial abscess Status: Acute Assessment and plan: Multiple antibiotics. Current Visit: Yes
--- NOTE | 2017-01-28 12:13 | Hospitalist Progress Note ---
Assessment and Plan (1) Facial cellulitis Status: Acute Assessment and plan: cont clindamycin IV, blood cx negative Current Visit: Yes (2) Hypertension Status: Chronic Assessment and plan: controlled Current Visit: Yes Qualifiers: Hypertension type: essential hypertension Qualified Code(s): I10 - Essential (primary) hypertension (3) Hypokalemia Status: Acute Assessment and plan: Resolved Current Visit: Yes (4) CKD (chronic kidney disease) Status: Chronic Assessment and plan: chronic stage 5 renal failure Current Visit: No Qualifiers: Chronic kidney disease stage: stage 5, not on chronic dialysis Qualified Code(s): N18.5 - Chronic kidney disease, stage 5 (5) Diabetes Status: Chronic Assessment and plan: cont lantus and bolus insulin Current Visit: No Qualifiers: Diabetes mellitus type: type 2 Chronic kidney disease stage: stage 5, not on chronic dialysis (6) Anemia Status: Acute Assessment and plan: one unit of PRBC, outpatient gi workup by Dr. Iglesias Current Visit: Yes Hospitalist: Subjective Interval history: Today will be her third day on IV antibiotics. Her facial swelling is improving. Her blood counts are low and needs an outpatient anemia workup. I will give her 1 unit of packed cells today. She reports her periods are sometimes heavy Exam - Constitutional Vitals: Period Temp Pulse Resp BP Sys/Jarrell Pulse Ox Last 24 Hr 98.4 F-99.8 F 75-86 18-20 96-131/54-61 90-97 Exam: Heart Rate-[RRR] Lungs-[CTAB] GI-[+bs soft, NT] Ext-[no edema] Skin facial swelling improving Neuro [Motor 5/5], [alert and oriented times 3] psych [depressed mood and flat affect] General [no acute distress] Results - Labs CBC & BMP: 01/28/17 02:31 01/28/17 02:31 Lab Results: I have reviewed the past 24 hour labs
[2017-01-28 17:16] LABS: Hematocrit 25.2 VOL% (35.7-47.0); Hemoglobin 8.5 GM/DL (12.0-16.0)
[2017-01-28] MEDS: INSULIN GLARGINE 100 UNIT/ML SUBCUT SCH (20:35)
[2017-01-28] MEDS: SIMVASTATIN 10 MG TABLET PO SCH (20:35)
[2017-01-29] MEDS: INSULIN LISPRO 100 UNIT/ML SUBCUT SCH ×5 (05:26→21:14)
[2017-01-29 06:29] LABS: Basophils % 0.2 % (0.0-0.8); Eosinophils # 0.5 10*3/uL (0.0-0.87); Eosinophils % 4.5 % (0.00-10.9); Hematocrit 23.7 VOL% (35.7-47.0); Immature Granulocytes % 0.6 %; Immature Granulocytes Absolute 0.06 #; Lymphocytes # 2.3 10*3/uL (1.4-4.0); Lymphocytes % 22.6 % (21.3-54.2); Mean Corpuscular HGB Conc 33.8 GM/DL (32-36); Mean Corpuscular Hemoglobin 29 PG (27-34); Mean Corpuscular Volume 85.9 FL (87-102); Mean Platelet Volume 9.1 FL (9.6-12.0); Monocytes # 0.7 10*3/uL (0.11-0.8); Monocytes % 6.6 % (1.7-12.7); Neutrophils # 6.6 10*3/uL (1.4-7.4); Neutrophils % 65.5 % (38.7-73.9); Platelet Count 393 T/CUMM (130-400); Red Blood Count 2.76 MC/CUMM (3.8-5.5); Red Cell Distribution Width 13.4 % (9.3-17.3); White Blood Count 10.1 T/CUMM (4-12)
[2017-01-29 06:57] LABS: Alanine Aminotransferase 14 U/L (13-56); Albumin 1.5 G/DL (3.4-5.0); Alkaline Phosphatase 157 U/L (45-117); Aspartate Amino Transferase 15 U/L (0-37); Bilirubin,Total < 0.39 MG/DL (0.2-1.0); Blood Urea Nitrogen 34 MG/DL (7-18); Glucose 85 MG/DL (74-106); Osmolality,Calculated 289.1 MOS/KG (273-304); Potassium 3.5 MMOL/L (3.5-5.1); Sodium 142 MMOL/L (136-145); Total Protein 5.9 G/DL (6.4-8.3)
[2017-01-29] MEDS: FLUTICASONE 50 MCG NASAL SPRAY 16 GM BOTTLE BOTH NARES SCH (10:38)
[2017-01-29] MEDS: ENOXAPARIN 30 MG/0.3 ML SYRINGE SUBCUT SCH (10:39)
[2017-01-29] MEDS: PANTOPRAZOLE 40 MG TABLET PO SCH (10:39)
[2017-01-29] MEDS: CLINDAMYCIN INJ 600 MG in PREMIX 1 EACH IV SCH ×2 (10:40→18:03)
[2017-01-29] MEDS: POLYETHYLENE GLYCOL POWDER 17 GM PACK PO SCH (10:45)
--- NOTE | 2017-01-29 13:13 | Hospitalist Progress Note ---
Assessment and Plan (1) Diabetes Status: Chronic Assessment and plan: The patient's blood glucose is well controlled at present. We will continue current into diabetes regimen. Current Visit: No Qualifiers: Diabetes mellitus type: type 2 Chronic kidney disease stage: stage 5, not on chronic dialysis (2) Facial cellulitis Status: Acute Assessment and plan: Continuing IV clindamycin and adding IV Ancef. That does not appear to be a place to be drained yet. Current Visit: Yes (3) Anemia Status: Acute Assessment and plan: The patient had transfusion of 1 unit packed red blood cells yesterday. The anemia is likely due to chronic kidney disease. Current Visit: Yes Hospitalist: Subjective Interval history: Mrs. Hermosillo he continues with IV antibiotics for left face cellulitis over the zygoma. She states that the face is less swollen less tender and less red today. Indurated area is smaller but still present. There is no obvious abscess present. Exam - Constitutional Vitals: Period Temp Pulse Resp BP Sys/Jarrell Pulse Ox Last 24 Hr 97.9 F-99.3 F 74-92 18-20 98-138/40-72 91-100 Exam: Constitutional System: Mild distress. No tremulousness. Head: Normocephalic, atraumatic. Ears, Nose and Throat System: No evidence of Otitis or Mastoiditis. No epistaxis or discharge. There is an indurated area of 4 cm diameter over the left zygoma. It is heaped up about 1.5 cm Eyes System: Pupils equal, round, and reactive. Extraocular muscles intact. Neck: Supple, without adenopathy, No jugular venous distention. No thyromegaly , neck mass, or prior surgery apparent. Respiratory System: Chest clear to auscultation. Cardiovascular System: Heart with regular rate and rhythm. No murmur. GI System: Abdomen soft, nontender. Normo active bowel sounds present. Musculoskeletal System: limbs with no pedal edema. Full distal pulses. Neurological System: No discernable sensory deficit. No aphasia Results - Labs CBC & BMP: 01/29/17 04:36 01/29/17 04:36 Lab Results: I have reviewed the past 24 hour labs
--- NOTE | 2017-01-29 16:46 | Progress Note ---
Assessment and Plan (1) Facial abscess Status: Acute Assessment and plan: Her CT scan of the face did not show abscess formation. We will continue her current antibiotic therapy 01/29: Still no signs of abscess formation. Continue current antibiotic therapy. Current Visit: Yes (2) Facial cellulitis Status: Acute Assessment and plan: She did not have evidence of abscess on CT scan of the face or exam. It does not seem that she needs an I&D at this time. She is currently on Zosyn. Her white cell count trended down slightly. We will continue her current antibiotic therapy and follow-up closely. 01/29: It seems to have improved with IV antibiotic therapy. I would continue the current therapy. Current Visit: Yes (3) Diabetes Status: Chronic Assessment and plan: Good diabetic control. Current Visit: No Qualifiers: Diabetes mellitus type: type 2 Chronic kidney disease stage: stage 5, not on chronic dialysis Family Medicine PN Sub Interval history: She is currently on IV antibiotics. She admits to decreased edema and pain. She is able to open her mouth now. However, she still notes some tenderness at the area. Exam (Progress Note) - Constitutional Vitals: Period Temp Pulse Resp BP Sys/Jarrell Pulse Ox Last 24 Hr 98.1 F-98.9 F 74-92 18-20 108-138/52-72 93-100 General appearance: normal weight, no acute distress - Head Head exam: Present: other (Induration, edema, and erythema decreased. No fluctuance or purulent drainage noted.) - Eye Eye exam: Present: EOMI - ENT ENT exam: Present: normal external ear exam - Neck Neck exam: Present: normal inspection - Respiratory Respiratory exam: Present: other (Normal effort and movement bilaterally) - GI/Abdominal GI/Abdominal exam: Present: soft - Extremities Exam Extremities exam: Present: normal inspection - Neurological Exam Neurological exam: Present: alert, oriented X3 - Psychiatric Psychiatric exam: Present: normal affect, normal mood - Skin Skin exam: Present: normal color, warm Results - Labs CBC & BMP: 01/29/17 04:36 01/29/17 04:36 Lab Results: I have reviewed the past 24 hour labs
--- NOTE | 2017-01-29 20:16 | Nephrology Progress Note ---
Nephrology - PN: Subj Interval history: Patient samples out of bed resting comfortably. No shortness of breath or chest pain. Serum creatinine is noted be 4.7 which is slightly better than yesterday. No fevers or chills. 01/28/2017. The patient is resting. Serum creatinine is noted to be elevated at 5.2 today. Moreover hemoglobin is down to 7.4 today. No fevers or chills. 01/29/2017. Patient is resting. Serum creatinine is noted to be 5.0 today with slight improvement in yesterday. Continue to monitor. Exam (PN)-Nephrology - Vital Signs Vital signs: Period Temp Pulse Resp BP Sys/Jarrell Pulse Ox Last 24 Hr 97.3 F-98.7 F 74-82 18-20 108-143/52-72 93-97 - General Appearance General appearance: well-developed, well-nourished EENT: ATNC Neck: supple Respiratory: clear Cardiology: regular rate, regular rhythm Gastrointestinal: normoactive bowel sounds, no tenderness Neurologic: alert and oriented x3 Musculoskeletal: no clubbing Psychiatric: mood/affect appropriate, cooperative - Lab 01/29/17 04:36 01/29/17 04:36 Most recent lab results Calcium 7.0 MG/DL (8.5-10.1) L 01/29/17 04:36 Magnesium 1.9 MG/DL (1.8-2.4) 01/26/17 02:30 Assessment and Plan (1) Diabetes Status: Chronic Current Visit: No Qualifiers: Diabetes mellitus type: type 2 Chronic kidney disease stage: stage 5, not on chronic dialysis (2) CKD (chronic kidney disease) Status: Chronic Assessment and plan: Avoid nephrotoxic agents. Daily BMP. Will follow with you thank you. Current Visit: No Qualifiers: Chronic kidney disease stage: stage 5, not on chronic dialysis Qualified Code(s): N18.5 - Chronic kidney disease, stage 5 (3) Hypertension Status: Chronic Current Visit: Yes Qualifiers: Hypertension type: essential hypertension Qualified Code(s): I10 - Essential (primary) hypertension (4) Facial abscess Status: Acute Assessment and plan: Multiple antibiotics. Current Visit: Yes
[2017-01-29] MEDS: INSULIN GLARGINE 100 UNIT/ML SUBCUT SCH (21:14)
[2017-01-29] MEDS: SIMVASTATIN 10 MG TABLET PO SCH (21:14)
[2017-01-30] MEDS: INSULIN LISPRO 100 UNIT/ML SUBCUT SCH ×8 (01:26→20:15)
[2017-01-30] MEDS: CLINDAMYCIN INJ 600 MG in PREMIX 1 EACH IV SCH ×3 (01:26→19:10)
[2017-01-30] MEDS: FLUTICASONE 50 MCG NASAL SPRAY 16 GM BOTTLE BOTH NARES SCH (09:52)
[2017-01-30] MEDS: PANTOPRAZOLE 40 MG TABLET PO SCH (09:53)
[2017-01-30] MEDS: ENOXAPARIN 30 MG/0.3 ML SYRINGE SUBCUT SCH (09:53)
[2017-01-30] MEDS: POLYETHYLENE GLYCOL POWDER 17 GM PACK PO SCH (09:55)
--- NOTE | 2017-01-30 14:55 | Hospitalist Progress Note ---
Assessment and Plan (1) Diabetes Status: Chronic Assessment and plan: The patient's blood glucose is well controlled at present. We will continue current into diabetes regimen. Current Visit: No Qualifiers: Diabetes mellitus type: type 2 Chronic kidney disease stage: stage 5, not on chronic dialysis (2) Facial cellulitis Status: Acute Assessment and plan: Continuing IV clindamycin and adding IV Ancef. That does not appear to be a place to be drained yet. Current Visit: Yes (3) Anemia Status: Acute Assessment and plan: The patient had transfusion of 1 unit packed red blood cells yesterday. The anemia is likely due to chronic kidney disease. Current Visit: Yes Hospitalist: Subjective Interval history: The patient's cellulitis is improving. The left zygoma indurated area is coalescing about a central abscess. Exam - Constitutional Vitals: Period Temp Pulse Resp BP Sys/Jarrell Pulse Ox Last 24 Hr 97.0 F-100.0 F 66-82 18-20 116-143/54-68 92-98 Exam: Constitutional System: Mild distress. No tremulousness. Head: Normocephalic, atraumatic. Ears, Nose and Throat System: No evidence of Otitis or Mastoiditis. No epistaxis or discharge. There is an indurated area of 4 cm diameter over the left zygoma. It is heaped up about 1.5 cm Eyes System: Pupils equal, round, and reactive. Extraocular muscles intact. Neck: Supple, without adenopathy, No jugular venous distention. No thyromegaly , neck mass, or prior surgery apparent. Respiratory System: Chest clear to auscultation. Cardiovascular System: Heart with regular rate and rhythm. No murmur. GI System: Abdomen soft, nontender. Normo active bowel sounds present. Musculoskeletal System: limbs with no pedal edema. Full distal pulses. Neurological System: No discernable sensory deficit. No aphasia Results - Labs CBC & BMP: 01/29/17 04:36 01/29/17 04:36 Lab Results: I have reviewed the past 24 hour labs
--- NOTE | 2017-01-30 15:43 | Nephrology Progress Note ---
Nephrology - PN: Subj Interval history: Patient samples out of bed resting comfortably. No shortness of breath or chest pain. Serum creatinine is noted be 4.7 which is slightly better than yesterday. No fevers or chills. 01/28/2017. The patient is resting. Serum creatinine is noted to be elevated at 5.2 today. Moreover hemoglobin is down to 7.4 today. No fevers or chills. 01/29/2017. Patient is resting. Serum creatinine is noted to be 5.0 today with slight improvement in yesterday. Continue to monitor. 02/26/2017. The patient is resting comfortably no acute changes. Abscess on her left cheek appears to be larger. No drainage at this time. Afebrile. Will check for BMP on tomorrow. Monitoring for renal recovery. Exam (PN)-Nephrology - Vital Signs Vital signs: Period Temp Pulse Resp BP Sys/Jarrell Pulse Ox Last 24 Hr 97.0 F-100.0 F 66-82 18-20 116-143/54-68 92-98 - General Appearance General appearance: well-developed, well-nourished EENT: ATNC Neck: supple Respiratory: clear Cardiology: no edema, regular rate, regular rhythm Gastrointestinal: normoactive bowel sounds, no tenderness, no guarding Neurologic: alert and oriented x3 Musculoskeletal: no erythema, no clubbing Psychiatric: mood/affect appropriate, cooperative - Lab 01/29/17 04:36 01/29/17 04:36 Most recent lab results Calcium 7.0 MG/DL (8.5-10.1) L 01/29/17 04:36 Magnesium 1.9 MG/DL (1.8-2.4) 01/26/17 02:30 Assessment and Plan (1) Diabetes Status: Chronic Current Visit: No Qualifiers: Diabetes mellitus type: type 2 Chronic kidney disease stage: stage 5, not on chronic dialysis (2) CKD (chronic kidney disease) Status: Chronic Assessment and plan: Avoid nephrotoxic agents. Daily BMP. Will follow with you thank you. Current Visit: No Qualifiers: Chronic kidney disease stage: stage 5, not on chronic dialysis Qualified Code(s): N18.5 - Chronic kidney disease, stage 5 (3) Hypertension Status: Chronic Current Visit: Yes Qualifiers: Hypertension type: essential hypertension Qualified Code(s): I10 - Essential (primary) hypertension (4) Facial abscess Status: Acute Assessment and plan: Multiple antibiotics. Current Visit: Yes
[2017-01-30] MEDS: INSULIN GLARGINE 100 UNIT/ML SUBCUT SCH (22:22)
[2017-01-30] MEDS: SIMVASTATIN 10 MG TABLET PO SCH (22:22)
[2017-01-31] MEDS: INSULIN LISPRO 100 UNIT/ML SUBCUT SCH ×8 (01:29→23:33)
[2017-01-31] MEDS: CLINDAMYCIN INJ 600 MG in PREMIX 1 EACH IV SCH ×4 (01:47→23:27)
[2017-01-31 06:17] LABS: Basophils # 0.1 10*3/uL (0.0-0.2); Basophils % 0.6 % (0.0-0.8); Eosinophils # 0.6 10*3/uL (0.0-0.87); Hematocrit 27.9 VOL% (35.7-47.0); Hemoglobin 9.2 GM/DL (12.0-16.0); Immature Granulocytes % 0.8 %; Immature Granulocytes Absolute 0.07 #; Lymphocytes # 2.8 10*3/uL (1.4-4.0); Lymphocytes % 31.7 % (21.3-54.2); Mean Corpuscular Hemoglobin 29 PG (27-34); Mean Corpuscular Volume 86.4 FL (87-102); Mean Platelet Volume 8.8 FL (9.6-12.0); Monocytes # 0.6 10*3/uL (0.11-0.8); Monocytes % 7.1 % (1.7-12.7); Neutrophils # 4.7 10*3/uL (1.4-7.4); Neutrophils % 52.8 % (38.7-73.9); Platelet Count 508 T/CUMM (130-400); Red Blood Count 3.23 MC/CUMM (3.8-5.5); Red Cell Distribution Width 13.3 % (9.3-17.3); White Blood Count 8.8 T/CUMM (4-12)
[2017-01-31 06:55] LABS: Calcium 7.8 MG/DL (8.5-10.1); Magnesium 2.2 MG/DL (1.8-2.4); Osmolality,Calculated 291.8 MOS/KG (273-304)
[2017-01-31] MEDS: FLUTICASONE 50 MCG NASAL SPRAY 16 GM BOTTLE BOTH NARES SCH (10:16)
[2017-01-31] MEDS: PANTOPRAZOLE 40 MG TABLET PO SCH (10:17)
[2017-01-31] MEDS: ENOXAPARIN 30 MG/0.3 ML SYRINGE SUBCUT SCH (10:17)
[2017-01-31] MEDS: POLYETHYLENE GLYCOL POWDER 17 GM PACK PO SCH (10:19)
[2017-01-31] MEDS ORDERED: DEXTROSE 50% 25 GM/50 ML VIAL IV PRN (11:00)
--- NOTE | 2017-01-31 11:04 | Hospitalist Progress Note ---
Assessment and Plan (1) Diabetes Status: Chronic Assessment and plan: The patient's blood glucose is well controlled at present. We will continue current into diabetes regimen. Continuing IV antibiotics. Current Visit: No Qualifiers: Diabetes mellitus type: type 2 Chronic kidney disease stage: stage 5, not on chronic dialysis (2) Facial cellulitis Status: Acute Assessment and plan: Continuing IV clindamycin and Ancef. Current Visit: Yes (3) Anemia Status: Acute Assessment and plan: The patient had transfusion of 1 unit packed red blood cells yesterday. The anemia is likely due to chronic kidney disease. Current Visit: Yes Hospitalist: Subjective Interval history: We are continuing with IV antibiotics for indurated infection on the left zygoma. The patient states she is having a pressure sensation over the arch of the left eye now. Going to ask Dr. hanna to reevaluate for possible debridement. Exam - Constitutional Vitals: Period Temp Pulse Resp BP Sys/Jarrell Pulse Ox Last 24 Hr 97.1 F-100.0 F 65-79 16-20 123-149/62-99 92-99 Exam: Constitutional System: Mild distress. No tremulousness. Head: Normocephalic, atraumatic. Ears, Nose and Throat System: No evidence of Otitis or Mastoiditis. No epistaxis or discharge. There is an indurated area of 4 cm diameter over the left zygoma. It is heaped up about 1.5 cm Eyes System: Pupils equal, round, and reactive. Extraocular muscles intact. Neck: Supple, without adenopathy, No jugular venous distention. No thyromegaly , neck mass, or prior surgery apparent. Respiratory System: Chest clear to auscultation. Cardiovascular System: Heart with regular rate and rhythm. No murmur. GI System: Abdomen soft, nontender. Normo active bowel sounds present. Musculoskeletal System: limbs with no pedal edema. Full distal pulses. Neurological System: No discernable sensory deficit. No aphasia Results - Labs CBC & BMP: 01/31/17 05:18 01/31/17 05:18 Lab Results: I have reviewed the past 24 hour labs
--- NOTE | 2017-01-31 13:41 | Nephrology Progress Note ---
Nephrology - PN: Subj Interval history: Patient samples out of bed resting comfortably. No shortness of breath or chest pain. Serum creatinine is noted be 4.7 which is slightly better than yesterday. No fevers or chills. 01/28/2017. The patient is resting. Serum creatinine is noted to be elevated at 5.2 today. Moreover hemoglobin is down to 7.4 today. No fevers or chills. 01/29/2017. Patient is resting. Serum creatinine is noted to be 5.0 today with slight improvement in yesterday. Continue to monitor. 01/30/2017. The patient is resting comfortably no acute changes. Abscess on her left cheek appears to be larger. No drainage at this time. Afebrile. Will check for BMP on tomorrow. Monitoring for renal recovery. 01/31/2017. The patient is resting comfortably. Serum creatinine is now 4.8 which is an improvement. Continue to monitor for renal recovery. Exam (PN)-Nephrology - Vital Signs Vital signs: Period Temp Pulse Resp BP Sys/Jarrell Pulse Ox Last 24 Hr 97.1 F-98.3 F 65-76 16-20 123-149/62-99 96-99 - General Appearance General appearance: well-developed, well-nourished EENT: ATNC Neck: supple Respiratory: clear Cardiology: no edema, regular rate, regular rhythm Gastrointestinal: normoactive bowel sounds, no tenderness Neurologic: alert and oriented x3 Musculoskeletal: no clubbing Psychiatric: mood/affect appropriate, cooperative - Lab 01/31/17 05:18 01/31/17 05:18 Most recent lab results Calcium 7.8 MG/DL (8.5-10.1) L 01/31/17 05:18 Magnesium 2.2 MG/DL (1.8-2.4) 01/31/17 05:18 Assessment and Plan (1) Diabetes Status: Chronic Current Visit: No Qualifiers: Diabetes mellitus type: type 2 Chronic kidney disease stage: stage 5, not on chronic dialysis (2) CKD (chronic kidney disease) Status: Chronic Assessment and plan: Avoid nephrotoxic agents. Daily BMP. Will follow with you thank you. Current Visit: No Qualifiers: Chronic kidney disease stage: stage 5, not on chronic dialysis Qualified Code(s): N18.5 - Chronic kidney disease, stage 5 (3) Hypertension Status: Chronic Current Visit: Yes Qualifiers: Hypertension type: essential hypertension Qualified Code(s): I10 - Essential (primary) hypertension (4) Facial abscess Status: Acute Assessment and plan: Multiple antibiotics. Current Visit: Yes
[2017-01-31] MEDS ORDERED: LIDOCAINE 1%/EPI INJ 20 ML VIAL MISC INJ ONE (16:41)
--- NOTE | 2017-01-31 17:25 | Operative Note ---
Date of procedure: 01/31/17 Pre-op diagnosis: Left cheek abscess, left cheek cellulitis, left cheek pain Post-op diagnosis: same Procedure: 1. Left cheek abscess incision and drainage Left cheek was locally anesthetized with 1% lidocaine with 1 100,000 epinephrine total of 2 cc was used. A 18-gauge needle was passed into the abscess and a small amount of purulent discharge was aspirated and forwarded to pathology/microbiology for culture. Additionally a 15-gauge scalpel was used to make a incision and the abscess pocket was probed to break up any loculations and packed with iodoform gauze approximately 4 inches. Patient tolerated the procedure well it was dressed with 4 x 4 and tape to help with any continued mild drainage and bleeding. We will plan on repacking tomorrow and potentially pulling the packing on Sunday Anesthesia: local Surgeon / Physician: Moisés Villavicencio Estimated blood loss: minimal Specimens: other (Left cheek abscess culture) Condition: stable Disposition: floor Results - Labs CBC & BMP: 01/31/17 05:18 01/31/17 05:18 Discharge Plan - Discharge Medications No Action Insulin Detemir [Levemir FlexPen] 45 unit SUBCUT BEDTIME Ibuprofen 400 mg PO Q6H PRN PRN Reason: Pain Simvastatin 10 mg PO BEDTIME Fluticasone 50 Mcg Nasal [place] [Flonase Nasal [place]] 2 spray BOTH NARES DAILY Loratadine 10 mg PO DAILY Insulin Aspart [NovoLOG FlexPen] 10 unit SUBCUT AC BREAKFAST Aspirin [Ecotrin] 81 mg PO QOTHER DAY Acetaminophen Tab [Tylenol Tab] 650 mg PO Q6H PRN #0 tablet PRN Reason: Pain Mild (1-3) And/Or Fever HYDROcodone/ACETAMIN 7.5-325 [[place] 7.5-325] 1 tablet PO Q6H PRN #30 tablet PRN Reason: Pain Moderate (4-7) Collagenase Oint [Santyl Oint] 1 applic TOP DAILY ointment Dextrose 50% [D50] 25 gm IV PRN PRN #0 vial PRN Reason: Hypoglycemia with IV access Enoxaparin [Lovenox] 40 mg SUBCUT Q24H syringe Glucagon 1 mg IM PRN PRN #0 vial PRN Reason: Hypoglycemia w/o IV access HYDROcodone/ACETAMIN 7.5-325 [[place] 7.5-325] 1 tablet PO Q4H PRN #0 tablet PRN Reason: Pain Moderate (4-7) HYDROmorphone INJ [Dilaudid Inj] 1 mg IV Q2H PRN #0 vial PRN Reason: Pain Severe (8-10) Insulin Lispro [HumaLOG] 15 unit SUBCUT TID W/MEALS ml Insulin Regular [HumuLIN R] See Protocol SUBCUT ACHS injection NIFEdipine XL TAB [Procardia Xl] 60 mg PO DAILY tablet Pantoprazole Tab [Protonix Tab] 40 mg PO DAILY tablet Sodium Hypochlorite 0.25% Irr [[place] 1/2 Strength 0.25% Soln] 1 applic TOP DAILY irrigation Vancomycin Inj 1,500 mg IV Q12H vial metroNIDAZOLE INJ [Flagyl Inj] 500 mg IV Q8H premix - Follow Up or Referral - Forms/Instructions
[2017-01-31] MEDS: INSULIN GLARGINE 100 UNIT/ML SUBCUT SCH (20:20)
[2017-01-31] MEDS: SIMVASTATIN 10 MG TABLET PO SCH (20:20)
[2017-02-01] MEDS: INSULIN LISPRO 100 UNIT/ML SUBCUT SCH ×6 (05:48→18:06)
[2017-02-01] MEDS: CLINDAMYCIN INJ 600 MG in PREMIX 1 EACH IV SCH ×2 (07:41→17:33)
--- NOTE | 2017-02-01 07:58 | Progress Note ---
Assessment and Plan (1) Facial abscess Status: Acute Assessment and plan: Her CT scan of the face did not show abscess formation. We will continue her current antibiotic therapy 01/29: Still no signs of abscess formation. Continue current antibiotic therapy. 02/01: Status post I&D yesterday with packing. It had minimal drainage throughout the night. I exchanged the packing today. We will try to remove the packing yesterday. Culture was sent and we are awaiting results. Current Visit: Yes (2) Facial cellulitis Status: Acute Assessment and plan: She did not have evidence of abscess on CT scan of the face or exam. It does not seem that she needs an I&D at this time. She is currently on Zosyn. Her white cell count trended down slightly. We will continue her current antibiotic therapy and follow-up closely. 01/29: It seems to have improved with IV antibiotic therapy. I would continue the current therapy. 02/01: Continue current antibiotics. culture was sent from yesterday's I&D. Await the results Current Visit: Yes (3) Diabetes Status: Chronic Assessment and plan: Good diabetic control. Current Visit: No Qualifiers: Diabetes mellitus type: type 2 Chronic kidney disease stage: stage 5, not on chronic dialysis Family Medicine PN Sub Interval history: Patient had incision and drainage of left cheek abscess and cellulitis yesterday evening. She still notes some tenderness, but much improvement. She denies any pressure around the area. Packing is in place with minimal drainage. Exam (Progress Note) - Constitutional Vitals: Period Temp Pulse Resp BP Sys/Jarrell Pulse Ox Last 24 Hr 98.0 F-98.5 F 70-75 18-20 113-137/38-71 95-99 General appearance: normal weight, no acute distress - Head Head exam: Present: other ( 4 cm indurated area with package in place due to I& D yesterday and minimal drainage noted) - Eye Eye exam: Present: EOMI - ENT ENT exam: Present: normal external ear exam - Respiratory Respiratory exam: Present: other (Normal effort and movement bilaterally) - GI/Abdominal GI/Abdominal exam: Present: soft - Extremities Exam Extremities exam: Present: normal inspection - Neurological Exam Neurological exam: Present: alert, oriented X3 - Psychiatric Psychiatric exam: Present: normal affect, normal mood - Skin Skin exam: Present: normal color, warm Results - Labs CBC & BMP: 01/31/17 05:18 01/31/17 05:18 Lab Results: I have reviewed the past 24 hour labs
[2017-02-01] MEDS: FLUTICASONE 50 MCG NASAL SPRAY 16 GM BOTTLE BOTH NARES SCH (10:01)
[2017-02-01] MEDS: ENOXAPARIN 30 MG/0.3 ML SYRINGE SUBCUT SCH (10:01)
[2017-02-01] MEDS: POLYETHYLENE GLYCOL POWDER 17 GM PACK PO SCH (10:02)
[2017-02-01] MEDS: PANTOPRAZOLE 40 MG TABLET PO SCH (10:02)
[2017-02-01] MEDS: DESITIN 4OZ/NYSTATIN 15 GRAM MIXTURE PASTE TOP SCH ×2 (14:03→20:25)
--- NOTE | 2017-02-01 16:02 | Hospitalist Progress Note ---
Assessment and Plan (1) Diabetes Status: Chronic Assessment and plan: The patient's blood glucose is well controlled at present. We will continue current into diabetes regimen. Continuing IV antibiotics. Current Visit: No Qualifiers: Diabetes mellitus type: type 2 Chronic kidney disease stage: stage 5, not on chronic dialysis (2) Facial cellulitis Status: Acute Assessment and plan: Continuing IV clindamycin and Ancef. The patient will likely be in hospital over the weekend receiving antibiotics and wound packing. Current Visit: Yes (3) Anemia Status: Acute Assessment and plan: The patient had transfusion of 1 unit packed red blood cells yesterday. The anemia is likely due to chronic kidney disease. Current Visit: Yes Hospitalist: Subjective Interval history: Mrs. Guerra had incision and drainage of the left zygoma yesterday. The carbuncle was draining and was re-packed by all this morning.y Exam - Constitutional Vitals: Period Temp Pulse Resp BP Sys/Jarrell Pulse Ox Last 24 Hr 97.2 F-98.5 F 71-75 18-20 121-145/38-99 95-99 Results - Labs CBC & BMP: 01/31/17 05:18 01/31/17 05:18 Lab Results: I have reviewed the past 24 hour labs
--- NOTE | 2017-02-01 18:44 | Nephrology Progress Note ---
Nephrology - PN: Subj Interval history: Patient samples out of bed resting comfortably. No shortness of breath or chest pain. Serum creatinine is noted be 4.7 which is slightly better than yesterday. No fevers or chills. 01/28/2017. The patient is resting. Serum creatinine is noted to be elevated at 5.2 today. Moreover hemoglobin is down to 7.4 today. No fevers or chills. 01/29/2017. Patient is resting. Serum creatinine is noted to be 5.0 today with slight improvement in yesterday. Continue to monitor. 01/30/2017. The patient is resting comfortably no acute changes. Abscess on her left cheek appears to be larger. No drainage at this time. Afebrile. Will check for BMP on tomorrow. Monitoring for renal recovery. 01/31/2017. The patient is resting comfortably. Serum creatinine is now 4.8 which is an improvement. Continue to monitor for renal recovery. 02/01/2017. The patient is resting comfortably. Status post I&D drainage of the abscess on her face. She is resting comfortably no acute changes. BMP in a.m. Exam (PN)-Nephrology - Vital Signs Vital signs: Period Temp Pulse Resp BP Sys/Jarrell Pulse Ox Last 24 Hr 97.2 F-98.5 F 71-75 18-20 121-145/38-99 95-99 - General Appearance General appearance: well-developed, well-nourished EENT: ATNC Neck: supple Respiratory: clear Cardiology: regular rate, regular rhythm Gastrointestinal: normoactive bowel sounds, no tenderness, no guarding Integumentary: no rash Neurologic: alert and oriented x3, CN 3-12 intact Musculoskeletal: no clubbing Psychiatric: mood/affect appropriate, cooperative - Lab 01/31/17 05:18 01/31/17 05:18 Most recent lab results Calcium 7.8 MG/DL (8.5-10.1) L 01/31/17 05:18 Magnesium 2.2 MG/DL (1.8-2.4) 01/31/17 05:18 Assessment and Plan (1) Diabetes Status: Chronic Current Visit: No Qualifiers: Diabetes mellitus type: type 2 Chronic kidney disease stage: stage 5, not on chronic dialysis (2) CKD (chronic kidney disease) Status: Chronic Assessment and plan: Avoid nephrotoxic agents. Daily BMP. Will follow with you thank you. Current Visit: No Qualifiers: Chronic kidney disease stage: stage 5, not on chronic dialysis Qualified Code(s): N18.5 - Chronic kidney disease, stage 5 (3) Hypertension Status: Chronic Current Visit: Yes Qualifiers: Hypertension type: essential hypertension Qualified Code(s): I10 - Essential (primary) hypertension (4) Facial abscess Status: Acute Assessment and plan: Multiple antibiotics. Current Visit: Yes
[2017-02-01] MEDS: INSULIN GLARGINE 100 UNIT/ML SUBCUT SCH (20:24)
[2017-02-01] MEDS: SIMVASTATIN 10 MG TABLET PO SCH (20:24)
[2017-02-02] MEDS: CLINDAMYCIN INJ 600 MG in PREMIX 1 EACH IV SCH ×3 (00:53→16:06)
[2017-02-02] MEDS: INSULIN LISPRO 100 UNIT/ML SUBCUT SCH ×7 (00:56→17:34)
[2017-02-02 03:59] LABS: Basophils % 0.5 % (0.0-0.8); Eosinophils # 0.6 10*3/uL (0.0-0.87); Eosinophils % 7.4 % (0.00-10.9); Hematocrit 26.1 VOL% (35.7-47.0); Hemoglobin 8.5 GM/DL (12.0-16.0); Immature Granulocytes % 0.9 %; Immature Granulocytes Absolute 0.07 #; Lymphocytes # 2.4 10*3/uL (1.4-4.0); Lymphocytes % 32.3 % (21.3-54.2); Mean Corpuscular HGB Conc 32.6 GM/DL (32-36); Mean Corpuscular Hemoglobin 28 PG (27-34); Mean Platelet Volume 8.6 FL (9.6-12.0); Monocytes # 0.5 10*3/uL (0.11-0.8); Monocytes % 6.7 % (1.7-12.7); Neutrophils # 3.9 10*3/uL (1.4-7.4); Neutrophils % 52.2 % (38.7-73.9); Platelet Count 421 T/CUMM (130-400); Red Cell Distribution Width 13.5 % (9.3-17.3); White Blood Count 7.5 T/CUMM (4-12)
[2017-02-02 04:35] LABS: Calcium 7.5 MG/DL (8.5-10.1); Osmolality,Calculated 293.7 MOS/KG (273-304); Potassium 3.9 MMOL/L (3.5-5.1)
--- NOTE | 2017-02-02 09:38 | Progress Note ---
Assessment and Plan (1) Facial abscess Status: Acute Assessment and plan: Her CT scan of the face did not show abscess formation. We will continue her current antibiotic therapy 01/29: Still no signs of abscess formation. Continue current antibiotic therapy. 02/01: Status post I&D yesterday with packing. It had minimal drainage throughout the night. I exchanged the packing today. We will try to remove the packing yesterday. Culture was sent and we are awaiting results. 02/02: Status post I&D 2 days ago with packing. I exchanged the packing and noted minimal drainage. We have consulted wound care to exchange the packing. Current Visit: Yes (2) Facial cellulitis Status: Acute Assessment and plan: She did not have evidence of abscess on CT scan of the face or exam. It does not seem that she needs an I&D at this time. She is currently on Zosyn. Her white cell count trended down slightly. We will continue her current antibiotic therapy and follow-up closely. 01/29: It seems to have improved with IV antibiotic therapy. I would continue the current therapy. 02/01: Continue current antibiotics. culture was sent from yesterday's I&D. Await the results 02/02: Continue current antibiotics. Preliminary culture showed gram-positive cocci. We will await final results for appropriate antibiotic direction. Current Visit: Yes (3) Diabetes Status: Chronic Assessment and plan: Good diabetic control. Current Visit: No Qualifiers: Diabetes mellitus type: type 2 Chronic kidney disease stage: stage 5, not on chronic dialysis Family Medicine PN Sub Interval history: Patient doing well. She only complains of mild tenderness to the left cheek. Left otalgia and pressure resolved. Exam (Progress Note) - Constitutional Vitals: Period Temp Pulse Resp BP Sys/Jarrell Pulse Ox Last 24 Hr 97.2 F-99.2 F 67-79 18-20 107-154/25-99 96-99 General appearance: normal weight, no acute distress - Head Head exam: Present: other (Left maxillary induration slightly decreased and packing in place with minimal drainage. ) - Eye Eye exam: Present: EOMI - ENT ENT exam: Present: normal external ear exam - Neck Neck exam: Present: normal inspection - Respiratory Respiratory exam: Present: other (Normal effort and movement bilaterally) - GI/Abdominal GI/Abdominal exam: Present: soft - Neurological Exam Neurological exam: Present: alert, oriented X3 - Psychiatric Psychiatric exam: Present: normal affect, normal mood - Skin Skin exam: Present: normal color, warm Results - Labs CBC & BMP: 02/02/17 03:03 02/02/17 03:03 Lab Results: I have reviewed the past 24 hour labs
[2017-02-02] MEDS: ENOXAPARIN 30 MG/0.3 ML SYRINGE SUBCUT SCH (10:08)
[2017-02-02] MEDS: PANTOPRAZOLE 40 MG TABLET PO SCH (10:08)
[2017-02-02] MEDS: POLYETHYLENE GLYCOL POWDER 17 GM PACK PO SCH (10:08)
[2017-02-02] MEDS: DESITIN 4OZ/NYSTATIN 15 GRAM MIXTURE PASTE TOP SCH (10:10)
[2017-02-02] MEDS: FLUTICASONE 50 MCG NASAL SPRAY 16 GM BOTTLE BOTH NARES SCH (13:44)
--- NOTE | 2017-02-02 13:51 | Hospitalist Progress Note ---
Assessment and Plan (1) Diabetes Status: Chronic Assessment and plan: The patient's blood glucose is well controlled at present. We will continue current anti diabetes regimen. Continuing IV antibiotics. Current Visit: No Qualifiers: Diabetes mellitus type: type 2 Chronic kidney disease stage: stage 5, not on chronic dialysis (2) Facial cellulitis Status: Acute Assessment and plan: Continuing IV clindamycin and Ancef. The patient will likely be in hospital over the weekend receiving antibiotics and wound packing. Current Visit: Yes (3) Anemia Status: Acute Assessment and plan: The patient had transfusion of 1 unit packed red blood cells yesterday. The anemia is likely due to chronic kidney disease. Current Visit: Yes Hospitalist: Subjective Interval history: Continuing treatment of face abscess. Dr. Villavicencio removed the packing is being replaced by wound care. The patient has no new symptoms today. Exam - Constitutional Vitals: Period Temp Pulse Resp BP Sys/Jarrell Pulse Ox Last 24 Hr 97.6 F-99.2 F 67-79 18-20 107-167/25-73 96-99 Exam: Constitutional System: Mild distress. No tremulousness. Head: Normocephalic, atraumatic. Ears, Nose and Throat System: No evidence of Otitis or Mastoiditis. No epistaxis or discharge. Dressing now in place left zygoma wound. Eyes System: Pupils equal, round, and reactive. Extraocular muscles intact. Neck: Supple, without adenopathy, No jugular venous distention. No thyromegaly , neck mass, or prior surgery apparent. Respiratory System: Chest clear to auscultation. Cardiovascular System: Heart with regular rate and rhythm. No murmur. GI System: Abdomen soft, nontender. Normo active bowel sounds present. Musculoskeletal System: limbs with no pedal edema. Full distal pulses. Neurological System: No discernable sensory deficit. No aphasia Results - Labs CBC & BMP: 02/02/17 03:03 02/02/17 03:03 Lab Results: I have reviewed the past 24 hour labs
--- NOTE | 2017-02-02 15:43 | Nephrology Progress Note ---
Nephrology - PN: Subj Interval history: Ms Guerra denies SOB or pain. Appetite improving. Sleep adequate. Creatinine 3.9 for calculated eGFR 16cc/min by CKD-EPI formula. Exam (PN)-Nephrology - Vital Signs Vital signs: Period Temp Pulse Resp BP Sys/Jarrell Pulse Ox Last 24 Hr 97.6 F-99.2 F 67-79 18-20 107-167/25-73 96-99 - General Appearance General appearance: well-developed, obese EENT: ATNC (left cheek dressing intact with serous appearing drainage on telfa) , PERRL, mucous membranes moist, hearing intact, vision intact Neck: no JVD, no thyromegaly Respiratory: no kyphosis, clear Cardiology: no murmurs, no rub Gastrointestinal: normoactive bowel sounds, no tenderness Integumentary: no rash, warm and dry Neurologic: no focal deficit, no asterixis, alert and oriented x3 Musculoskeletal: no deformities, no cyanosis Psychiatric: depressed, cooperative - Lab 02/02/17 03:03 02/02/17 03:03 Most recent lab results Calcium 7.5 MG/DL (8.5-10.1) L 02/02/17 03:03 Magnesium 2.0 MG/DL (1.8-2.4) 02/02/17 03:03 Assessment and Plan (1) MRSA (methicillin resistant Staphylococcus aureus) infection Problem details: On ancef and clindamycin. Resistant to ancef. Consider ID consultation. Status: Acute Current Visit: Yes (2) CKD stage 4 due to type 2 diabetes mellitus Problem details: Stable to improved. No acute indication for renal replacement therapy at this time. Status: Acute Assessment and plan: Continue to avoid nephrotoxins to include NSAIDs, aminoglycosides and IV contrast if possible. Renally doses all meds for eGFR 16cc/min. Strict renal diet. Avoid hypotension. Current Visit: Yes (3) Diabetes Status: Chronic Current Visit: No Qualifiers: Diabetes mellitus type: type 2 Chronic kidney disease stage: stage 5, not on chronic dialysis (4) Facial cellulitis Status: Acute Current Visit: Yes
[2017-02-02] MEDS: INSULIN GLARGINE 100 UNIT/ML SUBCUT SCH (20:57)
[2017-02-02] MEDS: SIMVASTATIN 10 MG TABLET PO SCH (20:57)
[2017-02-03] MEDS: INSULIN LISPRO 100 UNIT/ML SUBCUT SCH ×7 (00:44→18:08)
[2017-02-03] MEDS: CLINDAMYCIN INJ 600 MG in PREMIX 1 EACH IV SCH ×4 (00:47→23:44)
[2017-02-03] MEDS: DESITIN 4OZ/NYSTATIN 15 GRAM MIXTURE PASTE TOP SCH ×3 (00:48→23:44)
[2017-02-03] MEDS: FLUTICASONE 50 MCG NASAL SPRAY 16 GM BOTTLE BOTH NARES SCH (08:56)
[2017-02-03] MEDS: POLYETHYLENE GLYCOL POWDER 17 GM PACK PO SCH (08:57)
[2017-02-03] MEDS: PANTOPRAZOLE 40 MG TABLET PO SCH (08:57)
[2017-02-03] MEDS: ENOXAPARIN 30 MG/0.3 ML SYRINGE SUBCUT SCH (09:47)
--- NOTE | 2017-02-03 13:11 | Hospitalist Progress Note ---
Assessment and Plan (1) Diabetes Status: Chronic Assessment and plan: The patient's blood glucose is well controlled at present. We will continue current anti diabetes regimen. Continuing IV antibiotics. Current Visit: No Qualifiers: Diabetes mellitus type: type 2 Chronic kidney disease stage: stage 5, not on chronic dialysis (2) Facial cellulitis Status: Acute Assessment and plan: Continuing IV clindamycin and Ancef. The patient will likely be in hospital over the weekend receiving antibiotics and wound packing. Current Visit: Yes (3) Anemia Status: Acute Assessment and plan: The patient had transfusion of 1 unit packed red blood cells yesterday. The anemia is likely due to chronic kidney disease. Current Visit: Yes Hospitalist: Subjective Interval history: The patient is up to chair and ambulatory within the room. The carbuncle on the right zygoma has reduced in size after drainage. The patient continues IV antibiotics. Exam - Constitutional Vitals: Period Temp Pulse Resp BP Sys/Jarrell Pulse Ox Last 24 Hr 98.3 F-99.7 F 67-79 16-18 131-144/56-74 93-98 Exam: Constitutional System: Mild distress. No tremulousness. Head: Normocephalic, atraumatic. Ears, Nose and Throat System: No evidence of Otitis or Mastoiditis. No epistaxis or discharge. Dressing now in place left zygoma wound. Eyes System: Pupils equal, round, and reactive. Extraocular muscles intact. Neck: Supple, without adenopathy, No jugular venous distention. No thyromegaly , neck mass, or prior surgery apparent. Respiratory System: Chest clear to auscultation. Cardiovascular System: Heart with regular rate and rhythm. No murmur. GI System: Abdomen soft, nontender. Normo active bowel sounds present. Musculoskeletal System: limbs with no pedal edema. Full distal pulses. Neurological System: No discernable sensory deficit. No aphasia Results - Labs CBC & BMP: 02/02/17 03:03 02/02/17 03:03 Lab Results: I have reviewed the past 24 hour labs
--- NOTE | 2017-02-03 14:19 | Nephrology Progress Note ---
Nephrology - PN: Subj Interval history: She is asymptomatic today Exam (PN)-Nephrology - Vital Signs Vital signs: Period Temp Pulse Resp BP Sys/Jarrell Pulse Ox Last 24 Hr 98.3 F-99.7 F 67-79 16-18 131-144/56-74 93-98 Exam: Gen.: Alert and oriented x3. Neck: Supple. No JVD or bruit. Cardiovascular: Regular rate and rhythm. No murmur rub or gallop Lungs: Clear Abdomen: Soft. Nontender. Positive bowel sounds. No organomegaly Extremities: 1-2+ edema - Lab 02/02/17 03:03 02/02/17 03:03 Most recent lab results Calcium 7.5 MG/DL (8.5-10.1) L 02/02/17 03:03 Magnesium 2.0 MG/DL (1.8-2.4) 02/02/17 03:03 Assessment and Plan (1) CKD stage 4 due to type 2 diabetes mellitus Status: Acute Assessment and plan: 46-year-old woman with: * CRF. No lab today. Creatinine yesterday was slightly improved * Diabetes mellitus * Facial cellulitis Current Visit: Yes (2) Facial abscess Status: Acute Current Visit: Yes (3) CKD (chronic kidney disease) Status: Chronic Current Visit: No Qualifiers: Chronic kidney disease stage: stage 5, not on chronic dialysis Qualified Code(s): N18.5 - Chronic kidney disease, stage 5 (4) Diabetes Status: Chronic Current Visit: No Qualifiers: Diabetes mellitus type: type 2 Chronic kidney disease stage: stage 5, not on chronic dialysis
[2017-02-03] MEDS: SIMVASTATIN 10 MG TABLET PO SCH (22:23)
[2017-02-03] MEDS: INSULIN GLARGINE 100 UNIT/ML SUBCUT SCH (22:23)
[2017-02-04] MEDS: INSULIN LISPRO 100 UNIT/ML SUBCUT SCH ×7 (01:23→18:26)
[2017-02-04 03:08] LABS: Basophils % 0.3 % (0.0-0.8); Eosinophils # 0.6 10*3/uL (0.0-0.87); Eosinophils % 7.2 % (0.00-10.9); Hemoglobin 8.5 GM/DL (12.0-16.0); Immature Granulocytes % 0.8 %; Immature Granulocytes Absolute 0.06 #; Lymphocytes # 2.7 10*3/uL (1.4-4.0); Mean Corpuscular HGB Conc 32.7 GM/DL (32-36); Mean Corpuscular Hemoglobin 29 PG (27-34); Mean Corpuscular Volume 87.5 FL (87-102); Mean Platelet Volume 8.1 FL (9.6-12.0); Monocytes # 0.6 10*3/uL (0.11-0.8); Monocytes % 7.2 % (1.7-12.7); Neutrophils # 3.8 10*3/uL (1.4-7.4); Neutrophils % 49.5 % (38.7-73.9); Platelet Count 340 T/CUMM (130-400); Red Blood Count 2.97 MC/CUMM (3.8-5.5); Red Cell Distribution Width 13.5 % (9.3-17.3); White Blood Count 7.6 T/CUMM (4-12)
[2017-02-04 03:35] LABS: Calcium 7.5 MG/DL (8.5-10.1); Potassium 3.7 MMOL/L (3.5-5.1)
[2017-02-04] MEDS: POLYETHYLENE GLYCOL POWDER 17 GM PACK PO SCH (08:23)
[2017-02-04] MEDS: FLUTICASONE 50 MCG NASAL SPRAY 16 GM BOTTLE BOTH NARES SCH (08:23)
[2017-02-04] MEDS: PANTOPRAZOLE 40 MG TABLET PO SCH (08:23)
[2017-02-04] MEDS: CLINDAMYCIN INJ 600 MG in PREMIX 1 EACH IV SCH ×2 (08:24→15:59)
[2017-02-04] MEDS: DESITIN 4OZ/NYSTATIN 15 GRAM MIXTURE PASTE TOP SCH (08:24)
--- NOTE | 2017-02-04 12:17 | Nephrology Progress Note ---
Nephrology - PN: Subj Interval history: No new problems today. Exam (PN)-Nephrology - Vital Signs Vital signs: Period Temp Pulse Resp BP Sys/Jarrell Pulse Ox Last 24 Hr 98.0 F-99.6 F 66-76 16-18 113-156/52-87 95-98 Exam: ENT: Normal Cardiovascular: Regular rate and rhythm. No murmur rub or gallop Lungs: Clear Extremities: 1-2+ edema - Lab 02/04/17 02:52 02/04/17 02:52 Most recent lab results Calcium 7.5 MG/DL (8.5-10.1) L 02/04/17 02:52 Magnesium 2.0 MG/DL (1.8-2.4) 02/04/17 02:52 Assessment and Plan (1) CKD stage 4 due to type 2 diabetes mellitus Status: Acute Assessment and plan: 46-year-old woman with: * CRF. Creatinine is stable at 3.9 * Diabetes mellitus * Facial cellulitis Current Visit: Yes (2) Facial abscess Status: Acute Current Visit: Yes (3) CKD (chronic kidney disease) Status: Chronic Current Visit: No Qualifiers: Chronic kidney disease stage: stage 5, not on chronic dialysis Qualified Code(s): N18.5 - Chronic kidney disease, stage 5 (4) Diabetes Status: Chronic Current Visit: No Qualifiers: Diabetes mellitus type: type 2 Chronic kidney disease stage: stage 5, not on chronic dialysis
--- NOTE | 2017-02-04 13:09 | Hospitalist Progress Note ---
Assessment and Plan (1) Diabetes Status: Chronic Assessment and plan: The patient's blood glucose is well controlled at present. We will continue current anti diabetes regimen. Continuing IV antibiotics. Current Visit: No Qualifiers: Diabetes mellitus type: type 2 Chronic kidney disease stage: stage 5, not on chronic dialysis (2) Facial cellulitis Status: Acute Assessment and plan: Continuing IV clindamycin and Ancef. The patient will likely be in hospital over the weekend receiving antibiotics and wound packing. Current Visit: Yes (3) Anemia Status: Acute Assessment and plan: The patient had transfusion of 1 unit packed red blood cells yesterday. The anemia is likely due to chronic kidney disease. Current Visit: Yes Hospitalist: Subjective Interval history: Ms. Hermosillo he continues on IV antibiotics for carbuncle on the left zygoma. The patient is receiving daily dressing changes and IV antibiotic. I anticipate discharge home tomorrow on oral antibiotic if approved by Dr. hanna. Exam - Constitutional Vitals: Period Temp Pulse Resp BP Sys/Jarrell Pulse Ox Last 24 Hr 97.6 F-99.6 F 66-80 16-18 113-156/52-87 95-98 Exam: Constitutional System: Mild distress. No tremulousness. Head: Normocephalic, atraumatic. Ears, Nose and Throat System: No evidence of Otitis or Mastoiditis. No epistaxis or discharge. Dressing now in place left zygoma wound. Eyes System: Pupils equal, round, and reactive. Extraocular muscles intact. Neck: Supple, without adenopathy, No jugular venous distention. No thyromegaly , neck mass, or prior surgery apparent. Respiratory System: Chest clear to auscultation. Cardiovascular System: Heart with regular rate and rhythm. No murmur. GI System: Abdomen soft, nontender. Normo active bowel sounds present. Musculoskeletal System: limbs with no pedal edema. Full distal pulses. Neurological System: No discernable sensory deficit. No aphasia Results - Labs CBC & BMP: 02/04/17 02:52 02/04/17 02:52 Lab Results: I have reviewed the past 24 hour labs
[2017-02-04] MEDS: INSULIN GLARGINE 100 UNIT/ML SUBCUT SCH (20:50)
[2017-02-04] MEDS: SIMVASTATIN 10 MG TABLET PO SCH (20:50)
[2017-02-05] MEDS: CLINDAMYCIN INJ 600 MG in PREMIX 1 EACH IV SCH ×3 (01:55→15:45)
[2017-02-05] MEDS: INSULIN LISPRO 100 UNIT/ML SUBCUT SCH ×6 (02:37→17:24)
[2017-02-05] MEDS: DESITIN 4OZ/NYSTATIN 15 GRAM MIXTURE PASTE TOP SCH ×2 (02:38→08:45)
[2017-02-05] MEDS: PANTOPRAZOLE 40 MG TABLET PO SCH (08:44)
[2017-02-05] MEDS: FLUTICASONE 50 MCG NASAL SPRAY 16 GM BOTTLE BOTH NARES SCH (08:44)
[2017-02-05] MEDS: POLYETHYLENE GLYCOL POWDER 17 GM PACK PO SCH (08:45)
--- NOTE | 2017-02-05 09:20 | Progress Note ---
Assessment and Plan (1) Facial abscess Status: Acute Assessment and plan: Her CT scan of the face did not show abscess formation. We will continue her current antibiotic therapy 01/29: Still no signs of abscess formation. Continue current antibiotic therapy. 02/01: Status post I&D yesterday with packing. It had minimal drainage throughout the night. I exchanged the packing today. We will try to remove the packing yesterday. Culture was sent and we are awaiting results. 02/02: Status post I&D 2 days ago with packing. I exchanged the packing and noted minimal drainage. We have consulted wound care to exchange the packing. 02/05: Status post I and D last week with packing. She still has a small amount of packing in place with drainage. I exchanged the packing. She may be discharged from our standpoint with PO clindamycin for 10 days. She will need a close follow-up with us on Sunday. Current Visit: Yes (2) Facial cellulitis Status: Acute Assessment and plan: She did not have evidence of abscess on CT scan of the face or exam. It does not seem that she needs an I&D at this time. She is currently on Zosyn. Her white cell count trended down slightly. We will continue her current antibiotic therapy and follow-up closely. 01/29: It seems to have improved with IV antibiotic therapy. I would continue the current therapy. 02/01: Continue current antibiotics. culture was sent from yesterday's I&D. Await the results 02/02: Continue current antibiotics. Preliminary culture showed gram-positive cocci. We will await final results for appropriate antibiotic direction. 02/05: Culture sensitive to Clindamycin. She maybe transitioned to PO clindamycin. Current Visit: Yes (3) Diabetes Status: Chronic Assessment and plan: Good diabetic control. Current Visit: No Qualifiers: Diabetes mellitus type: type 2 Chronic kidney disease stage: stage 5, not on chronic dialysis Family Medicine PN Sub Interval history: Patient sitting in chair at interview. Still notes some tenderness and drainage of left cheek. Otherwise, she is without complaints. Exam (Progress Note) - Constitutional Vitals: Period Temp Pulse Resp BP Sys/Jarrell Pulse Ox Last 24 Hr 97.1 F-98.5 F 65-82 17-20 129-154/58-89 95-98 General appearance: normal weight, no acute distress - Head Head exam: Present: other (left maxillary induration decreased with packing in place and minimal drainage) - Eye Eye exam: Present: EOMI - ENT ENT exam: Present: normal external ear exam - Neck Neck exam: Present: normal inspection - Respiratory Respiratory exam: Present: other (Normal effort and movement bilaterally.) - GI/Abdominal GI/Abdominal exam: Present: soft - Neurological Exam Neurological exam: Present: alert, oriented X3 - Psychiatric Psychiatric exam: Present: normal affect, normal mood Results - Labs CBC & BMP: 02/04/17 02:52 02/04/17 02:52 Lab Results: I have reviewed the past 24 hour labs Labs: Culture reviewed and susceptible to Clindamycin.
--- NOTE | 2017-02-05 11:26 | Discharge Summary ---
Hospital Course - Hospital Course Hospital Course: 46-year-old [place] female with a history of chronic kidney disease and diabetes and hypertension presents with a facial abscess. Facial CT showed no evidence of abscess. She was started on Zosyn and vancomycin. Based on the location of the wound and the type of wound looked almost as if she had a spider bite. Dr. [facility] but felt that wound did not need debridement at this time. After several days of antibiotics Dr. Curiel all decided to debride her cheek wound and did an I&D on January 31, 2017. Wound culture grew out MRSA and patient's antibiotics was changed to clindamycin IV. Patient is stable for discharge today and Dr. Rodriguez from infectious disease recommends 10 more days of doxycycline. Patient was also mildly anemic and received 1 unit of packed red blood cells. Her hemoglobin stabilized at 8.5. Patient has chronic stage V renal disease due to diabetes and hypertension. Patient stable for discharge home with f/u with Dr. Villavicencio and [facility]. - Time spent with patient Time with patient DS: Less than 30 minutes (25 min) Diagnosis - Discharge Diagnosis (1) Facial cellulitis Status: Acute (2) Hypertension Status: Chronic (3) Hypokalemia Status: Acute (4) CKD (chronic kidney disease) Status: Chronic (5) Diabetes Status: Chronic (6) Anemia Status: Acute Specialty Discharge - Follow Up or Referrals Follow up with: Moisés Villavicencio DO [Physician] - 02/07/17 8:15 am Discharge Plan - Discharge Data Disposition: Disch To Home/Self Care Condition at Discharge: Stable Discharge Diet: diabetic diet Activity: resume usual activities as tolerated Hygiene: no restrictions Weight Bearing at Discharge: full weight bearing Contact your physician if you experience:: fever over 101 - Discharge Medications New Doxycycline Hyclate 100 mg PO BID #20 tablet Continue Simvastatin 10 mg PO BEDTIME Fluticasone 50 Mcg Nasal [place] [Flonase Nasal [place]] 2 spray BOTH NARES DAILY Collagenase Oint [Santyl Oint] 1 applic TOP DAILY ointment NIFEdipine XL TAB [Procardia Xl] 60 mg PO DAILY tablet Changed Insulin Detemir [Levemir FlexPen] 28 unit SUBCUT BEDTIME #0 Insulin Lispro [HumaLOG] 20 unit SUBCUT TID W/MEALS #0 ml Discontinued Ibuprofen 400 mg PO Q6H PRN PRN Reason: Pain Loratadine 10 mg PO DAILY Insulin Aspart [NovoLOG FlexPen] 10 unit SUBCUT AC BREAKFAST Aspirin [Ecotrin] 81 mg PO QOTHER DAY Acetaminophen Tab [Tylenol Tab] 650 mg PO Q6H PRN #0 tablet PRN Reason: Pain Mild (1-3) And/Or Fever HYDROcodone/ACETAMIN 7.5-325 [[place] 7.5-325] 1 tablet PO Q6H PRN #30 tablet PRN Reason: Pain Moderate (4-7) Dextrose 50% [D50] 25 gm IV PRN PRN #0 vial PRN Reason: Hypoglycemia with IV access Enoxaparin [Lovenox] 40 mg SUBCUT Q24H syringe Glucagon 1 mg IM PRN PRN #0 vial PRN Reason: Hypoglycemia w/o IV access HYDROcodone/ACETAMIN 7.5-325 [[place] 7.5-325] 1 tablet PO Q4H PRN #0 tablet PRN Reason: Pain Moderate (4-7) HYDROmorphone INJ [Dilaudid Inj] 1 mg IV Q2H PRN #0 vial PRN Reason: Pain Severe (8-10) Insulin Regular [HumuLIN R] See Protocol SUBCUT ACHS injection Pantoprazole Tab [Protonix Tab] 40 mg PO DAILY tablet Sodium Hypochlorite 0.25% Irr [Dakins 1/2 Strength 0.25% Soln] 1 applic TOP DAILY irrigation Vancomycin Inj 1,500 mg IV Q12H vial metroNIDAZOLE INJ [Flagyl Inj] 500 mg IV Q8H premix - Follow Up or Referral Follow Up: Moisés Villavicencio DO [Physician] - 02/07/17 8:15 am [facility] [Provider Group] - 2 Weeks - Forms/Instructions Exam - Constitutional Vitals: Period Temp Pulse Resp BP Sys/Jarrell Pulse Ox Last 24 Hr 97.1 F-98.5 F 65-82 17-20 129-154/58-89 95-98 Exam: Heart Rate-[RRR] Lungs-[CTAB] GI-[+bs soft, NT] Ext-[no edema] facial edema resolved Neuro [Motor 5/5], [alert and oriented times 3] psych [normal mood and affect] General [no acute distress] Discharge Results Labs on day of discharge: Labs from last 24 hours 02/05/17 02/05/17 02/04/17 11:01 05:34 23:49 POC Glucose 96 98 113 H 02/04/17 02/04/17 17:54 11:43 POC Glucose 200 H 90 DS: Provider Date of admission: 01/26/17 00:49 Primary care physician: Sudheer Avila MD Attending physician on admission: Marco Gerardo MD Consults: 01/26/17 01:53 Consult to Physician [CONS] Routine Comment: abscess to left face Consulting Provider: Moisés Villavicencio Consulting Provider Notified: Yes When should Consulting Provider be notified: Now Person Notified: Dr. 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 Consulting Provider Notified: Yes When should Consulting Provider be notified: Now Person Notified: Dr Knott called Date Notified: 01/26/17 Time Notified: 16:37 Consult Notification Comment: Dr Knott adult probation officer 02/01/17 12:46 Consult to Wound Care [facility] [CONS] Routine Reason for Wound Care: Wound Care Management Consult Comment: evaluate and treat - I&D to left cheek at bedside on 201602/02/17 15:50 Consult to Physician [CONS] Routine Comment: MRSA facial abscess Consulting Provider: Leana Garcia Consulting Provider Notified: Yes When should Consulting Provider be notified: Now Person Notified: ashu called Date Notified: 02/05/17 Time Notified: 08:54 Discharging clinician: Laura Michelle MD
--- NOTE | 2017-02-05 12:16 | Infectious Disease Consult ---
History of Present Illness Chief complaint: Abscess to face History of present illness: Ms. Guerra is a 46 year old female admitted about a week and a half ago with a tender swelling to the left cheek. Gradually the swelling organized into an abscess and she had I&D done. MRSA was cultured. She has been on clindamycin since admission and says that the swelling is significantly better. She has not any fever recently. I am asked to advise antibiotic therapy for discharge home. Impression: 1. Abscess to left side of face due to MRSA, improving after I&D 2. Diabetes uncontrolled with an A1c of 9.6% 3. Chronic kidney disease Recommendations: Given increased risk for C. difficile with clindamycin, I would switch from that to doxycycline 100 mg twice a day. This can be continued for 7-10 days. Thank you very much for the consult. Call again as needed. Discussed with Dr. Michelle. Home Medications Medication Instructions Recorded Confirmed Type Aspirin [Ecotrin] 81 mg PO QOTHER DAY 09/09/15 01/26/17 History Fluticasone 50 Mcg Nasal [place] 2 spray BOTH NARES DAILY 09/09/15 01/26/17 History [Flonase Nasal [place]] Ibuprofen 400 mg PO Q6H PRN 09/09/15 01/26/17 History Insulin Aspart [NovoLOG FlexPen] 10 unit SUBCUT AC BREAKFAST 09/09/15 01/26/17 History Insulin Detemir [Levemir FlexPen] 45 unit SUBCUT BEDTIME 09/09/15 01/26/17 History Loratadine 10 mg PO DAILY 09/09/15 01/26/17 History Simvastatin 10 mg PO BEDTIME 09/09/15 01/26/17 History Acetaminophen Tab [Tylenol Tab] 650 mg PO Q6H PRN #0 tablet 09/16/15 01/26/17 Rx HYDROcodone/ACETAMIN 7.5-325 1 tablet PO Q6H PRN #30 tablet 11/26/15 01/26/17 Rx [[place] 7.5-325] Collagenase Oint [Santyl Oint] 1 applic TOP DAILY ointment 12/22/15 01/26/17 Rx Dextrose 50% [D50] 25 gm IV PRN PRN #0 vial 12/22/15 01/26/17 Rx Enoxaparin [Lovenox] 40 mg SUBCUT Q24H syringe 12/22/15 01/26/17 Rx Glucagon 1 mg IM PRN PRN #0 vial 12/22/15 01/26/17 Rx HYDROcodone/ACETAMIN 7.5-325 1 tablet PO Q4H PRN #0 tablet 12/22/15 01/26/17 Rx [[place] 7.5-325] HYDROmorphone INJ [Dilaudid Inj] 1 mg IV Q2H PRN #0 vial 12/22/15 01/26/17 Rx Insulin Lispro [HumaLOG] 15 unit SUBCUT TID W/MEALS ml 12/22/15 01/26/17 Rx Insulin Regular [HumuLIN R] See Protocol SUBCUT ACHS injection 12/22/15 Rx NIFEdipine XL TAB [Procardia Xl] 60 mg PO DAILY tablet 12/22/15 01/26/17 Rx Pantoprazole Tab [Protonix Tab] 40 mg PO DAILY tablet 12/22/15 01/26/17 Rx Sodium Hypochlorite 0.25% Irr 1 applic TOP DAILY irrigation 12/22/15 01/26/17 Rx [[place] 1/2 Strength 0.25% Soln] Vancomycin Inj 1,500 mg IV Q12H vial 12/22/15 01/26/17 Rx metroNIDAZOLE INJ [Flagyl Inj] 500 mg IV Q8H premix 12/22/15 01/26/17 Rx Allergies Allergy/AdvReac Type Severity Reaction Status Date / Time No Known Allergies Allergy Verified 01/25/17 21:31 12 point system: reviewed and no additional remarkable complaints except as stated (Per HPI) Medical,Surgical,& Family Hx - Medical History Cardio: History of: Hypertension No history of: CHF, CAD, [place] Psychological: No history of: Anxiety Disorders Neurology: No history of: Cerebrovascular Accident, Migraine, TIA HEENT: History of: Eye Problem (wears glasses) Endocrine: History of: Diabetes Mellitus (IDDM), Dyslipidemia No history of: Thyroid Disorder Rheumatology: No history of;: Rheumatological Problems Respiratory: History of: Respiratory Problems (ALLERGIES) No history of: Asthma, COPD, Obstructive Sleep Apnea Renal: History of: Renal Failure Genitourinary: No history of: Problems Gastrointestinal: No history of: Liver Problems, GI Problems Musculoskeletal: History of: Musculoskeletal Problems (ARTHRITIS) Hematology: No history of: Blood Disorders Other: History of: MRSA - Surgical History Reproductive Surgeries: Patient denies;: Genitourinary Surgery Orthopedic Surgeries: Surgical HX of;: Orthopedic Surgery (zaida ankle, back, left great toe) - Family History Family History: Reports;: Family Cancer (Motherbreast cancer; dadprostate cancer), Family Diabetes, Family Heart Disease (BrotherMI), Family Hematology ( Sisteranemia\) - Social History Smoking Status: Never smoker Frequency of Alcohol Use: None Type of Drug Use: None Infectious Disease Exam H&P - Constitutional Vitals: Vital Signs Temp Pulse Resp BP Pulse Ox 98.3 F 73 18 155/74 97 02/05/17 11:35 02/05/17 11:35 02/05/17 11:35 02/05/17 11:35 02/05/17 11:35 Intake and Output 02/04/17 02/05/17 02/05/17 23:59 07:59 15:59 Intake Total 50 / 50 100 / 100 50 / 50 Balance 50 / 50 100 / 100 50 / 50 Intake: IV 50 / 50 100 / 100 50 / 50 Cleocin Inj 600 mg In 50 / 50 50 / 50 50 / 50 Premix 1 Each @ 100 mls/ hr IV Q8H GREG Rx#: [id number] Ancef 500 mg In Ns 50 ml 50 / 50 @ 100 mls/hr IV Q12H GREG Rx#:[id number] Other: Voiding Method Toilet Toilet # Voids 2 1 # Bowel Movements 1 Exam: General: Patient comfortable sitting in chair HEENT: Mucous membranes pink and moist, anicteric acyanotic, LUIS MANUEL, no oral exudates. Erythematous swelling over left zygomatic arch with central incision packed with iodoform. Mild tenderness on palpation, no drainage. Neck: Supple, no thyroid gland enlargement, no lymphadenopathy Respiratory system: Breath sounds vesicular, no crepitations or wheezes Cardiovascular: Normal S1 and S2, no murmurs appreciated Abdomen: Normal bowel sounds, soft nontender throughout, no organomegaly or mass Genitourinary: No suprapubic pain or bladder distention Extremities: no edema Skin: No rash but multiple scratches and hyperpigmented postinflammatory baptiste Reports - Labs CBC & BMP: 02/04/17 02:52 02/04/17 02:52 Labs: Laboratory Results - last 24 hr 02/04/17 02/04/17 02/05/17 17:54 23:49 05:34 POC Glucose 200 H 113 H 98 02/05/17 11:01 POC Glucose 96 Specialty Discharge - Follow Up or Referrals Follow up with: Moisés Villavicencio DO [Physician] - 02/07/17 8:15 am
[2017-02-05 16:27] VITALS: BP 144/71
== END 2017-02-05 17:25 | disposition home or self-care (01) | DRG 603 ==
LOC: N.ED 20:50 → SUATTDRO 01-26 00:49 → N.EDINP 01-26 00:49 → N.3E 01-26 01:52
PROVIDERS: ADMIT Internal Medicine; ATTEND Internal Medicine

== ENCOUNTER 2017-08-16 10:54 | Inpatient (IN) ==
[2017-08-16] MEDS ORDERED: DEXTROSE 50% 25 GM/50 ML VIAL IV PRN ×3 (15:24→15:29)
[2017-08-16] MEDS ORDERED: ACETAMINOPHEN 325 MG TABLET PO PRN (15:24)
[2017-08-16] MEDS ORDERED: GLUCAGON 1 MG VIAL IM PRN ×3 (15:24→15:29)
[2017-08-16] MEDS ORDERED: INSULIN REGULAR 100 UNIT/ML SUBCUT SCH (16:30)
[2017-08-16] MEDS ORDERED: ceFAZolin 2,000 MG in PREMIX 1 EACH IV ONE (16:54)
[2017-08-16] MEDS ORDERED: hydrALAZINE 20 MG/1 ML VIAL IV PRN (17:00)
[2017-08-16] MEDS: INSULIN REGULAR 100 UNIT/ML SUBCUT SCH ×2 (17:19→23:38)
[2017-08-16 17:29] LABS: Apearance,Urine CLEAR (Clear); Bacteria,Urine Occasional /HPF (Few); Bilirubin,Urine Negative (Negative); Blood, Urine Small mg/dL (Negative); Glucose,Urine (UA) 50 mg/dL (Negative); Ketones,Urine Negative (Negative); Nitrite,Urine Negative (Negative); Protein,Urine >=500 MG/DL; RBC,Urine 12 /HPF (0-4); Squamous Epithelial Cell,Urine Occasional /HPF (0-10); Urine Color Straw (Yellow); Urine Urobilinogen < 2.0 EU/DL (0.2-1.0); WBC,Urine 1 /HPF (0-6)
[2017-08-16] MEDS: CALCIUM (CARBONATE) 600 MG TABLET PO SCH (20:40)
[2017-08-16] MEDS: SIMVASTATIN 10 MG TABLET PO SCH (20:40)
[2017-08-16] MEDS: HYDROCORTISONE 1% CREAM 28 GM TUBE TOP SCH (20:40)
[2017-08-17 05:17] LABS: Basophils % 0.3 % (0.0-0.8); Eosinophils # 0.4 10*3/uL (0.0-0.87); Eosinophils % 6.3 % (0.00-10.9); Immature Granulocytes % 0.4 %; Immature Granulocytes Absolute 0.03 #; Lymphocytes # 1.9 10*3/uL (1.4-4.0); Lymphocytes % 27.5 % (21.3-54.2); Mean Corpuscular HGB Conc 31.5 GM/DL (32-36); Mean Corpuscular Hemoglobin 29 PG (27-34); Mean Corpuscular Volume 90.9 FL (87-102); Monocytes # 0.4 10*3/uL (0.11-0.8); Neutrophils % 59.5 % (38.7-73.9); Platelet Count 204 T/CUMM (130-400); White Blood Count 6.8 T/CUMM (4-12)
[2017-08-17 05:20] LABS: Hemoglobin 6.3 GM/DL (12.0-16.0)
[2017-08-17 05:50] LABS: Calcium 7.1 MG/DL (8.5-10.1); Potassium 5.3 MMOL/L (3.5-5.1)
[2017-08-17 05:53] LABS: Albumin 2.4 G/DL (3.4-5.0); Bilirubin,Total 0.7 MG/DL (0.2-1.0); Potassium 5.3 MMOL/L (3.5-5.1)
[2017-08-17] MEDS ORDERED: ceFAZolin 2,000 MG in PREMIX 1 EACH IV ONE (06:00)
[2017-08-17 06:51] LABS: Hepatitis A Ab IgM Quant 0.22 Index; Hepatitis A Ab IgM Result Negative (Negative); Hepatitis B Core IgM Quant 0.19 Index; Hepatitis B Core IgM Result Negative (Negative); Hepatitis B Surface Ag Quant 0.18 Index; Hepatitis B Surface Ag Result Negative (Negative); Hepatitis C Virus Ab Quant 0.25 Index; Hepatitis C Virus Ab Result Negative (Negative)
[2017-08-17] MEDS ORDERED: SODIUM CHLORIDE 0.9% 1,000 ML IV PRN (07:00)
[2017-08-17] MEDS ORDERED: FUROSEMIDE 20 MG/2 ML VIAL IV PRN (07:01)
[2017-08-17] MEDS: HYDROCORTISONE 1% CREAM 28 GM TUBE TOP SCH ×2 (09:27→21:08)
[2017-08-17] MEDS: CALCIUM (CARBONATE) 600 MG TABLET PO SCH ×2 (09:57→21:05)
[2017-08-17] MEDS: INSULIN REGULAR 100 UNIT/ML SUBCUT SCH ×4 (09:57→21:05)
[2017-08-17] MEDS ORDERED: HEPARIN 5,000 UNIT/1 ML VIAL ONE (10:31)
[2017-08-17] MEDS ORDERED: MIDAZOLAM 2 MG/2 ML VIAL ONE (11:37)
[2017-08-17] MEDS ORDERED: PROPOFOL 200 MG/20 ML VIAL IV ONE (11:38)
[2017-08-17] MEDS ORDERED: fentaNYL 100 MCG/2 ML VIAL ONE (11:38)
[2017-08-17] MEDS ORDERED: SODIUM CHLORIDE 0.9% 100 ML IV ONE (11:38)
[2017-08-17] MEDS: SIMVASTATIN 10 MG TABLET PO SCH (21:05)
[2017-08-18 07:20] LABS: Basophils % 0.3 % (0.0-0.8); Eosinophils # 0.5 10*3/uL (0.0-0.87); Eosinophils % 7.1 % (0.00-10.9); Hematocrit 25.3 VOL% (35.7-47.0); Hemoglobin 8.4 GM/DL (12.0-16.0); Immature Granulocytes % 0.1 %; Immature Granulocytes Absolute 0.01 #; Lymphocytes # 1.6 10*3/uL (1.4-4.0); Lymphocytes % 21.1 % (21.3-54.2); Mean Corpuscular HGB Conc 33.2 GM/DL (32-36); Mean Corpuscular Hemoglobin 29 PG (27-34); Mean Corpuscular Volume 88.5 FL (87-102); Mean Platelet Volume 9.1 FL (9.6-12.0); Monocytes # 0.5 10*3/uL (0.11-0.8); Monocytes % 6.7 % (1.7-12.7); Neutrophils # 4.9 10*3/uL (1.4-7.4); Neutrophils % 64.7 % (38.7-73.9); Platelet Count 202 T/CUMM (130-400); Red Blood Count 2.86 MC/CUMM (3.8-5.5); Red Cell Distribution Width 14.7 % (9.3-17.3); White Blood Count 7.6 T/CUMM (4-12)
[2017-08-18 07:54] LABS: Albumin 2.4 G/DL (3.4-5.0); Bilirubin,Total 0.5 MG/DL (0.2-1.0); Calcium 7.2 MG/DL (8.5-10.1); Osmolality,Calculated 298.1 MOS/KG (273-304); Potassium 4.7 MMOL/L (3.5-5.1); Total Protein 6.2 G/DL (6.4-8.3)
[2017-08-18] MEDS: INSULIN REGULAR 100 UNIT/ML SUBCUT SCH ×4 (08:43→21:05)
[2017-08-18] MEDS: CALCIUM (CARBONATE) 600 MG TABLET PO SCH ×2 (08:45→21:05)
[2017-08-18] MEDS ORDERED: HEPARIN 10,000 UNIT/10 ML VIAL IV SCH (10:30)
[2017-08-18] MEDS: HYDROCORTISONE 1% CREAM 28 GM TUBE TOP SCH ×2 (13:09→21:05)
[2017-08-18] MEDS: SIMVASTATIN 10 MG TABLET PO SCH (21:04)
[2017-08-19 05:09] LABS: Basophils % 0.3 % (0.0-0.8); Eosinophils # 0.5 10*3/uL (0.0-0.87); Eosinophils % 6.9 % (0.00-10.9); Hemoglobin 8.8 GM/DL (12.0-16.0); Immature Granulocytes % 0.3 %; Immature Granulocytes Absolute 0.02 #; Lymphocytes # 2.1 10*3/uL (1.4-4.0); Lymphocytes % 26.7 % (21.3-54.2); Mean Corpuscular HGB Conc 32.6 GM/DL (32-36); Mean Corpuscular Hemoglobin 29 PG (27-34); Mean Corpuscular Volume 88.2 FL (87-102); Mean Platelet Volume 9.2 FL (9.6-12.0); Monocytes # 0.6 10*3/uL (0.11-0.8); Monocytes % 8.1 % (1.7-12.7); Neutrophils # 4.5 10*3/uL (1.4-7.4); Neutrophils % 57.7 % (38.7-73.9); Platelet Count 220 T/CUMM (130-400); Red Blood Count 3.06 MC/CUMM (3.8-5.5); Red Cell Distribution Width 14.4 % (9.3-17.3); White Blood Count 7.8 T/CUMM (4-12)
[2017-08-19 05:47] LABS: Albumin 2.5 G/DL (3.4-5.0); Bilirubin,Total 0.6 MG/DL (0.2-1.0); Calcium 7.5 MG/DL (8.5-10.1); Osmolality,Calculated 280.7 MOS/KG (273-304); Potassium 4.3 MMOL/L (3.5-5.1); Total Protein 6.5 G/DL (6.4-8.3)
[2017-08-19] MEDS: INSULIN REGULAR 100 UNIT/ML SUBCUT SCH ×4 (07:13→21:20)
[2017-08-19] MEDS: CALCIUM (CARBONATE) 600 MG TABLET PO SCH ×2 (10:09→21:07)
[2017-08-19] MEDS: HYDROCORTISONE 1% CREAM 28 GM TUBE TOP SCH ×2 (10:11→21:08)
[2017-08-19] MEDS: SIMVASTATIN 10 MG TABLET PO SCH (21:07)
[2017-08-20] MEDS ORDERED: HEPARIN 10,000 UNIT/10 ML VIAL IV SCH (07:00)
[2017-08-20] MEDS: INSULIN REGULAR 100 UNIT/ML SUBCUT SCH ×2 (07:49→11:26)
[2017-08-20 07:57] VITALS: BP 146/73
[2017-08-20] MEDS: CALCIUM (CARBONATE) 600 MG TABLET PO SCH (08:04)
[2017-08-20] MEDS: HYDROCORTISONE 1% CREAM 28 GM TUBE TOP SCH (08:04)
== END 2017-08-20 15:42 | disposition home or self-care (01) | DRG 674 ==
LOC: N.2E 12:51

== ENCOUNTER 2017-12-09 23:49 | Inpatient (IN) ==
[2017-12-10] MEDS ORDERED: MORPHINE 4 MG/1 ML VIAL IV PRN (01:55)
[2017-12-10] MEDS ORDERED: ACETAMINOPHEN 650 MG SUPP RECTAL PRN (02:23)
[2017-12-10] MEDS ORDERED: hydrALAZINE 20 MG/1 ML VIAL IV PRN (02:33)
[2017-12-10] MEDS ORDERED: GLUCAGON 1 MG VIAL IM PRN (02:36)
[2017-12-10] MEDS ORDERED: DEXTROSE 50% 25 GM/50 ML VIAL IV PRN (02:36)
[2017-12-10 02:58] LABS: Basophils % 0.2 % (0.0-0.8); Eosinophils # 0.7 10*3/uL (0.0-0.87); Eosinophils % 6.3 % (0.00-10.9); Hematocrit 32.3 VOL% (35.7-47.0); Hemoglobin 10.6 GM/DL (12.0-16.0); Immature Granulocytes % 0.3 %; Immature Granulocytes Absolute 0.04 #; Lymphocytes # 2.4 10*3/uL (1.4-4.0); Lymphocytes % 20.1 % (21.3-54.2); Mean Corpuscular HGB Conc 32.8 GM/DL (32-36); Mean Corpuscular Hemoglobin 31 PG (27-34); Mean Corpuscular Volume 95.3 FL (87-102); Mean Platelet Volume 8.9 FL (9.6-12.0); Monocytes # 0.7 10*3/uL (0.11-0.8); Monocytes % 5.8 % (1.7-12.7); Neutrophils # 7.9 10*3/uL (1.4-7.4); Neutrophils % 67.3 % (38.7-73.9); Platelet Count 304 T/CUMM (130-400); Red Blood Count 3.39 MC/CUMM (3.8-5.5); Red Cell Distribution Width 13.5 % (9.3-17.3); White Blood Count 11.8 T/CUMM (4-12)
[2017-12-10 03:21] LABS: Albumin 2.4 G/DL (3.4-5.0); Bilirubin,Total 0.4 MG/DL (0.2-1.0); Calcium 8.1 MG/DL (8.5-10.1); Osmolality,Calculated 287.7 MOS/KG (273-304); Potassium 3.3 MMOL/L (3.5-5.1)
[2017-12-10] MEDS ORDERED: VANCOMYCIN INJ 750 MG in SODIUM CHLORIDE 0.9% 250 ML IV PRN (03:33)
[2017-12-10] MEDS ORDERED: VANCOMYCIN INJ 2,250 MG in SODIUM CHLORIDE 0.9% 500 ML IV ONE (04:00)
[2017-12-10] MEDS: INSULIN LISPRO 100 UNIT/ML SUBCUT SCH ×3 (05:54→19:12)
[2017-12-10 07:49] LABS: Albumin 2.4 G/DL (3.4-5.0); Calcium 7.6 MG/DL (8.5-10.1); Osmolality,Calculated 286.7 MOS/KG (273-304); Potassium 3.5 MMOL/L (3.5-5.1)
[2017-12-10] MEDS ORDERED: EPOETIN ALFA 2,000 UNIT/1 ML VIAL IV PRN (09:13)
[2017-12-10 11:04] LABS: Hepatitis A Ab IgM Quant 0.27 Index; Hepatitis A Ab IgM Result Negative (Negative); Hepatitis B Core IgM Quant < 0.05 Index; Hepatitis B Core IgM Result Negative (Negative); Hepatitis B Surface Ag Quant < 0.10 Index; Hepatitis B Surface Ag Result Negative (Negative); Hepatitis C Virus Ab Result Negative (Negative)
[2017-12-10] MEDS ORDERED: BUPIVACAINE MPF 0.25% 30 ML VIAL ONE (11:36)
[2017-12-10] MEDS ORDERED: LIDOCAINE 1% 20 ML VIAL ONE (11:36)
[2017-12-10] MEDS ORDERED: MIDAZOLAM 2 MG/2 ML VIAL ONE (13:12)
[2017-12-10] MEDS ORDERED: fentaNYL 100 MCG/2 ML VIAL ONE (13:12)
[2017-12-10] MEDS ORDERED: PROPOFOL 200 MG/20 ML VIAL IV ONE (13:13)
[2017-12-10] MEDS ORDERED: ACETAMINOPHEN 1,000 MG/100 ML VIAL IV ONE (13:13)
[2017-12-10] MEDS ORDERED: SEVOFLURANE 1 UNIT/15 MINUTE INH ONE (13:13)
[2017-12-10] MEDS ORDERED: PHENYLEPHRINE 1 MG/10 ML SYRINGE IV ONE (13:14)
[2017-12-10] MEDS ORDERED: ONDANSETRON 4 MG/2 ML VIAL ONE (13:27)
[2017-12-10] MEDS: ONDANSETRON 4 MG/2 ML VIAL IV PRN (13:29)
[2017-12-10] MEDS: CALCIUM (CARBONATE) 600 MG TABLET PO SCH (21:02)
[2017-12-10] MEDS: SIMVASTATIN 10 MG TABLET PO SCH (21:02)
[2017-12-11] MEDS: INSULIN LISPRO 100 UNIT/ML SUBCUT SCH ×4 (01:33→19:00)
[2017-12-11 06:50] LABS: Basophils % 0.3 % (0.0-0.8); Eosinophils # 0.8 10*3/uL (0.0-0.87); Eosinophils % 7.7 % (0.00-10.9); Hematocrit 31.8 VOL% (35.7-47.0); Hemoglobin 10.4 GM/DL (12.0-16.0); Immature Granulocytes % 0.6 %; Immature Granulocytes Absolute 0.06 #; Lymphocytes # 2.8 10*3/uL (1.4-4.0); Lymphocytes % 27.6 % (21.3-54.2); Mean Corpuscular HGB Conc 32.7 GM/DL (32-36); Mean Corpuscular Hemoglobin 31 PG (27-34); Mean Corpuscular Volume 95.2 FL (87-102); Mean Platelet Volume 8.9 FL (9.6-12.0); Monocytes # 0.6 10*3/uL (0.11-0.8); Monocytes % 6.1 % (1.7-12.7); Neutrophils # 5.8 10*3/uL (1.4-7.4); Neutrophils % 57.7 % (38.7-73.9); Platelet Count 327 T/CUMM (130-400); Red Blood Count 3.34 MC/CUMM (3.8-5.5); Red Cell Distribution Width 13.5 % (9.3-17.3); White Blood Count 10.1 T/CUMM (4-12)
[2017-12-11 07:13] LABS: Band Neutrophils 1 % (0-10); Eosinophils 12 % (0-10); Hypochromasia 1+; Lymphocytes 23 % (20-55); Platelet Estimate Adequate; Segmented Neutrophils 57 % (50-85); Total Cells Counted 100
[2017-12-11 07:14] LABS: % Iron Saturation 33.1 % (18-50)
[2017-12-11 07:15] LABS: Albumin 2.3 G/DL (3.4-5.0); Osmolality,Calculated 295.3 MOS/KG (273-304); Potassium 4.2 MMOL/L (3.5-5.1)
[2017-12-11] MEDS: CALCIUM (CARBONATE) 600 MG TABLET PO SCH ×2 (08:27→20:24)
[2017-12-11] MEDS: SODIUM HYPOCHLORITE 0.25% IRRIG 473 ML BOTTLE TOP SCH (09:10)
[2017-12-11] MEDS: ONDANSETRON 4 MG/2 ML VIAL IV PRN (14:14)
[2017-12-11] MEDS ORDERED: VANCOMYCIN INJ 750 MG in SODIUM CHLORIDE 0.9% 250 ML IV ONE (17:00)
[2017-12-11] MEDS: SIMVASTATIN 10 MG TABLET PO SCH (20:24)
[2017-12-12] MEDS: INSULIN LISPRO 100 UNIT/ML SUBCUT SCH ×3 (00:23→12:10)
[2017-12-12 06:14] LABS: Basophils % 0.4 % (0.0-0.8); Eosinophils # 0.7 10*3/uL (0.0-0.87); Eosinophils % 6.4 % (0.00-10.9); Hematocrit 30.4 VOL% (35.7-47.0); Hemoglobin 9.7 GM/DL (12.0-16.0); Immature Granulocytes % 2.3 %; Immature Granulocytes Absolute 0.26 #; Lymphocytes # 3.8 10*3/uL (1.4-4.0); Lymphocytes % 33.4 % (21.3-54.2); Mean Corpuscular HGB Conc 31.9 GM/DL (32-36); Mean Corpuscular Hemoglobin 31 PG (27-34); Mean Corpuscular Volume 98.4 FL (87-102); Mean Platelet Volume 8.9 FL (9.6-12.0); Monocytes # 0.7 10*3/uL (0.11-0.8); Monocytes % 6.4 % (1.7-12.7); Neutrophils # 5.8 10*3/uL (1.4-7.4); Neutrophils % 51.1 % (38.7-73.9); Platelet Count 303 T/CUMM (130-400); Red Blood Count 3.09 MC/CUMM (3.8-5.5); Red Cell Distribution Width 13.4 % (9.3-17.3); White Blood Count 11.3 T/CUMM (4-12)
[2017-12-12 06:30] LABS: Calcium 7.9 MG/DL (8.5-10.1); Osmolality,Calculated 289.5 MOS/KG (273-304); Potassium 3.9 MMOL/L (3.5-5.1)
[2017-12-12 06:33] LABS: Eosinophils 7 % (0-10); Hypochromasia 1+; Lymphocytes 30 % (20-55); Platelet Estimate Adequate; Segmented Neutrophils 59 % (50-85); Total Cells Counted 100
[2017-12-12] MEDS: SODIUM HYPOCHLORITE 0.25% IRRIG 473 ML BOTTLE TOP SCH (08:30)
[2017-12-12] MEDS: CALCIUM (CARBONATE) 600 MG TABLET PO SCH (09:34)
[2017-12-12] MEDS ORDERED: MUPIROCIN 2% OINT 22 GM TUBE TOP SCH (11:00)
[2017-12-12 15:36] VITALS: BP 150/73
== END 2017-12-12 15:00 | disposition home or self-care (01) | DRG 982 ==
LOC: EDBD → EDUNIT# → N.ED 23:49 → SUATTDRO 12-10 01:53 → N.EDINP 12-10 01:53 → N.5E 12-10 02:20
PROVIDERS: ADMIT Internal Medicine; ATTEND Internal Medicine